=== PATIENT | male | born 1960 | race Caucasian/White ===

== ENCOUNTER → 2016-11-06 | Outpatient (CLI) | payer BC ==
[2016-11-06 13:26] LABS: BLOOD UREA NITROGEN 15 mg/dl (7-18); BUN/CREATININE RATIO 16.7 (10-20); CALCIUM 9.2 mg/dl (8.5-10.1); CARBON DIOXIDE 26 mmol/L (21-32); CHLORIDE 103 mmol/L (98-107); CHOLESTEROL 212 mg/dl (0-200); CREATININE 0.91 mg/dl (0.60-1.40); GLUCOSE 79 mg/dl (70-99); POTASSIUM 4.3 mmol/L (3.5-5.1); SODIUM 137 mmol/L (136-145); TRIGLYCERIDES 129 mg/dl (0-150); VERY LOW DENSITY LIPOPROT CALC 26 mg/dl
[2016-11-06 13:27] LABS: CHOLESTEROL/HDL RATIO 4.9; HDL CHOLESTEROL 43 mg/dl; LDL CHOLESTEROL CALCULATED 143 mg/dl
== END | disposition home or self-care (01) ==
LOC: C.LAB1850 10:09
PROVIDERS: ATTEND Family Medicine
DX: Z00.00 Encounter for general adult medical examination without abnormal findings (principal); N40.1 Benign prostatic hyperplasia with lower urinary tract symptoms

== ENCOUNTER → 2017-02-27 | Outpatient (CLI) | payer BC ==
[~2017-02-27] MED LIST: ASCO1CHW PO; ASTRAGALUS PO; KRIL1000 PO; [UNRECOGNIZED DRUG - OTHER] PO; [UNRECOGNIZED DRUG - OTHER] PO; [UNRECOGNIZED DRUG - OTHER] PO
[2017-02-27 12:32] LABS: CHOLESTEROL/HDL RATIO 4.3
== END | disposition home or self-care (01) ==
LOC: C.LAB1850 10:43
PROVIDERS: ATTEND Family Medicine
DX: E78.5 Hyperlipidemia, unspecified (principal)

== ENCOUNTER → 2017-05-11 | Outpatient (CLI) | payer BC | END | disposition home or self-care (01) | LOC: C.LAB1850 13:15 | PROVIDERS: ATTEND Urology | DX: R97.20 Elevated prostate specific antigen [PSA] (principal) ==

== ENCOUNTER → 2017-08-12 | Outpatient (CLI) | payer BC ==
--- NOTE | 2017-08-12 09:22 | DIAGNOSTIC IMAGING REPORT ---
CHEST 2 VIEWS ROUTINE CLINICAL HISTORY: CHEST PAIN dyspnea COMPARISON STUDY: No previous studies for comparison. FINDINGS: The bones soft tissues and hemidiaphragms are normal. The cardiomediastinal silhouette is normal. The lungs are clear. The pulmonary vasculature is normal. IMPRESSION: Negative chest. The above report was generated using voice recognition software. It may contain grammatical, syntax or spelling errors. Electronically signed by: Yomi Gallegos M.D. 08/12/2017 9:21 AM Dictated Date/Time: 08/12/2017 9:19 AM
== END | disposition home or self-care (01) ==
LOC: C.RAD1850 09:09
PROVIDERS: ATTEND Family Medicine
DX: R07.9 Chest pain, unspecified (principal); R06.00 Dyspnea, unspecified

== ENCOUNTER 2021-04-15 00:24 | Observation (INO) ==
--- NOTE | 2021-04-15 00:54 | Emergency Department Note ---
Impression & Plan Acute urinary retention ED Provider Note NAME: KRYSTA MARTINEZ AGE: 60 SEX: M ARRIVES VIA: Walk-In INFORMANT: Patient ED PROVIDER(S): Patsy Linares DO CHIEF COMPLAINT: Urinary retention PLAN: Disposition: To the OR with Dr. Akins MEDICAL DECISION MAKING: This is a 52-year-old male patient who presents to the emergency department unable to urinate. Patient has a history of an enlarged prostate. Patient drank 2 alcoholic beverages before bed tonight and is now unable to pass his urine. Patient tried to self cath and was unsuccessful. Patient describes similar episodes in the past which required self cathing. Unfortunately, he was unable to pass his own catheter. We attempted to straight cath the patient multiple times with different size catheters. We attempted IV sedation as well and then passing a catheter but were unsuccessful. I discussed the case with urology and they will evaluate the patient and take him to the OR. Triage Nursing notes reviewed and agree with them. Prior medical records reviewed Vital Signs: reviewed and remarkable for hypertension Differential diagnosis: Prostatic enlargement; urethral stricture ER treatment provided: IV Ativan IV Dilaudid Diagnostics interpreted by me: Consultation(s): Dr. Akins HPI: 60/M arrives for evaluation of urinary retention. The patient had 2 alcoholic beverages this evening around 9 PM and noticed that he was unable to pass his urine. The patient has history of prostatic hypertrophy with previous episodes of urinary retention. He attempted to self cath but could not pass the catheter. He attempted again but was again unsuccessful and noted there was blood coming from the penis. He presents here for evaluation. ROS: See above HPI for pertinent positives & negatives. PAST MEDICAL HISTORY:See Below PAST SURGICAL HISTORY:See Below FAMILY HISTORY:See Below SOCIAL HISTORY:See Below HOME MEDICATIONS:None ALLERGIES:None VITALS:See Below PHYSICAL EXAMINATION: Heart: Regular rate and rhythm. There is a normal S1 and S2 with no murmurs, clicks, or gallops appreciated. Lungs: Clear to auscultation bilaterally with no wheezes, rales, or rhonchi. Abdomen: Soft, extremely distended and tender Extremities: No evidence of cyanosis, clubbing, or edema. There are easily palpable peripheral pulses. Skin: warm and dry with good turgor and no rashes. ED COURSE: 0040: The patient was evaluated in room A3. A complete history and physical was performed. Nursing staff performed a bladder scan which showed nearly 600 mL of urine. They attempted to pass a straight cath to empty the patient's bladder but were unsuccessful. They attempted a coud catheter but were also unsuccessful. An IV lock was initiated and the patient was given a milligram of IV Ativan. Nursing staff again attempted straight cathing the patient but were unsuccessful. The patient was given 1 mg of IV Dilaudid for his pain. I discussed the case with Dr. Akins and he will take the patient to the OR for more definitive care. I discussed the case with Dr. Warren at the direction of Dr. Akins for admission orders. Patsy Linares DO Past Med/Surg History Medical History BPH (benign prostatic hyperplasia) Bronchitis Hypercholesterolemia Surgical History History of carpal tunnel repair Hx of LASIK S/P appendectomy S/P tooth extraction Family History Family/Other Colorectal cancer Father Heart disease BPH (benign prostatic hyperplasia) Nephrolithiasis Social History Smoking Status: Never smoker Hx Alcohol Use: Yes Preferred Language: Belarusian marital status: Single Current Living Situation: Significant Other current occupational status: employed Feels Safe at Home: Yes Allergies Allergies Allergy/AdvReac Type Severity Reaction Status Date / Time No Known Allergies Allergy Unverified 04/15/21 02:56 Home Meds Home Medications Medication Instructions Recorded Confirmed No Known Home Medications 04/15/21 04/15/21 Results & Data (ED) Vital Signs Vital Signs - 24 hr 04/15/21 00:32 04/15/21 02:33 04/15/21 03:53 Temperature 36.5 C Temperature Source Temporal Artery Scan Pulse Rate 105 H Pulse Rate [Apical] 89 93 H Respiratory Rate 24 24 18 Blood Pressure 198/103 H Blood Pressure [Right Arm] 189/100 H 172/97 H Blood Pressure Mean 134 Blood Pressure Mean [Right Arm] 129 122 Blood Pressure Position [Right Arm] Lying Pulse Oximetry 98 91 95 Oxygen Delivery Method Room Air Room Air Room Air Sepsis Recent Fever Within 48 Hours No Sepsis New/Unexplained Change in Mental Status No Sepsis Action Taken by Nursing No Action Required Laboratory Data Lab Results 04/15/21 Range/Units 03:14 COVID-19 Eval Order Covid19 at [facility] Administered Medications Discontinued Medications Hydromorphone HCl (Hydromorphone Inj 1 Mg/Ml Syringe) 1 mg IV NOW STA Stop: 04/15/21 02:42 Last Admin: 04/15/21 02:44 Dose: 1 mg Documented by: [id number] Hydromorphone HCl (Hydromorphone Inj 1 Mg/Ml Syringe) 1 mg IV NOW STA Stop: 04/15/21 03:42 Last Admin: 04/15/21 03:53 Dose: 1 mg Documented by: [id number] Lorazepam (Ativan) 1 mg in 2 mls @ 2 mls/min IV NOW STA Stop: 04/15/21 01:49 Last Admin: 04/15/21 02:11 Dose: 2 mls/min Documented by: [id number] Acetaminophen (Ofirmev) 1,000 mg in 100 mls @ 400 mls/hr IV NOW STA Stop: 04/15/21 03:55 Last Admin: 04/15/21 03:54 Dose: Not Given Documented by: [id number] Discharge Plan Visit Data Chief Complaint: Urinary Symptoms Stated Complaint: UNABLE TO URINATE,COULD NOT PUT CATHETER IN ED Provider: Patsy Linares Discharge Problem: Acute urinary retention Forms Stand Alone Forms: My [employer] Prescriptions Prescriptions: No Action No Known Home Medications RF: 0
[2021-04-15] MEDS ORDERED: LORazepam 1 MG/2 ML VIAL IV STA (01:48)
[2021-04-15] MEDS ORDERED: HYDROmorphone INJ 1 MG/ML SYRINGE IV STA ×3 (02:41→05:50)
--- NOTE | 2021-04-15 03:22 | History & Physical Report ---
Date of Service April 15, 2021 Assessment & Plan (1) Urinary retention: Enciso attempted in the ER was unsuccessful. Urology consulted and requested admission to medical service -Observation to medical -Urology consultation appreciated -Patient to OR later tonight to have catheter placement -Pain control and anti-emetics PRN Present on Admission?: Yes (2) Elevated blood pressure reading: In setting of acute urinary retention -Monitor F/E/N- Heplock. NPO Ppx - Low risk for DVT Code - Full Dispo - Observation to medical Present on Admission?: Yes History of Present Illness Chief Complaint: urinary retention Primary Care Provider: Ricardo Sarkar MD Willie Sánchez is a pleasant 60yo male presenting with acute urinary retention. Patient had 2 alcoholic beverages this evening and was finished by 21:00. Ar ound 22:30 he attempted to urinate but was unable to pass urine. He attempted to self catheterize but was unsuccessful. No additional complaints. Patient has had acute urinary retention on two prior occasions - both associated with a sleeping pill that he was previously on. He has materials at home to self catheterize if needed but has never needed to until tonight. ER Course: Urology consulted by ER staff. Requests that patient be admitted to medical service. Allergies Allergy/AdvReac Type Severity Reaction Status Date / Time No Known Allergies Allergy Unverified 04/15/21 02:56 Home Medications Medication Instructions Recorded Confirmed Type No Known Home Medications 04/15/21 04/15/21 History Past Med/Surg History Medical History BPH (benign prostatic hyperplasia) Bronchitis Hypercholesterolemia Surgical History History of carpal tunnel repair Hx of LASIK S/P appendectomy S/P tooth extraction Family History Family/Other Colorectal cancer Father Heart disease BPH (benign prostatic hyperplasia) Nephrolithiasis Social History Smoking Status: Never smoker Hx Alcohol Use: Yes Preferred Language: Tajik marital status: Single Current Living Situation: Significant Other current occupational status: employed Feels Safe at Home: Yes Review of Systems Review of Systems: All systems reviewed & are unremarkable except as noted in HPI & below +Abdominal pain and fullness Physical Exam Physical Exam: General: patient resting, uncomfortable, NAD, non-toxic in appearance, AA&O x 4 Skin: warm, dry, intact, no rashes or lesions HEENT: NC/AT, PERRL, EOMI, anicteric sclera, conjunctiva without injection, external ear normal to inspection and nontender, nares patent, moist mucus membranes, dentition intact, no oropharyngeal lesions, neck supple, trachea midline, no LAD, no thyromegaly, no JVD Heart: +S1/S2, regular, no m/r/g Lungs: equal air entry bilaterally, no rales/rhonchi/wheezes Abd: +BS, soft, firm, palpable bladder, no masses/organomegaly/ascites Ext: warm, 2+ pulses in UE/LE bilaterally, no clubbing/cyanosis or edema Neuro: nonfocal, patient AA&O x 4, speech intact, no facial droop, moving all extremities on command with equal strength 5/5 Results & Data Results & Data ([facility]) Vital Signs (Past 12 Hours) Vital Signs Temp Pulse Pulse Resp BP BP Pulse Ox 04/15/21 02:33 89 24 189/100 H 91 04/15/21 00:32 36.5 C 105 H 24 198/103 H 98 PG Care Time/CCT Total # of Minutes Spent Total Time Spent with Patient: Total time spent is greater than 50% in coordination of care (as documented) at patient's floor/unit and/or counseling patient: Coding Level of Care Code 74571 OBS Care - Level 2 Diagnoses Urinary retention R33.9 Elevated blood pressure reading R03.0
[2021-04-15] MEDS ORDERED: ACETAMINOPHEN 1,000 MG/100 ML VIAL IV STA (03:41)
[2021-04-15] MEDS ORDERED: fentaNYL citrate 100 MCG/2 ML VIAL ONE (03:56)
[2021-04-15] MEDS ORDERED: MIDAZOLAM HCL 1 MG/ML 2ML VIAL ONE (03:56)
[2021-04-15] MEDS ORDERED: fentaNYL citrate 100 MCG/2 ML VIAL IV PRN (04:12)
[2021-04-15] MEDS ORDERED: ePHEDrine sulfate 50 MG/ML AMP IV PRN (04:12)
[2021-04-15] MEDS ORDERED: ATROPINE SULFATE 0.1 MG/ML 10ML SYR IV PRN (04:12)
[2021-04-15] MEDS ORDERED: ONDANSETRON INJ 2 MG/ML 2 ML VIAL IV PRN ×2 (04:12→08:25)
--- NOTE | 2021-04-15 04:14 | Anesthesiology Consultation ---
Date of Service April 15, 2021 Assessment & Plan (1) Encounter for pre-operative examination: Chart Review Chart Review: Acceptable Risk for Surgery and Patient NOT seen in Pre Admission Testing Consults Requested none History Surgery Operation Date: 04/15/21 04:00 Proposed Procedures p Cystoscopy - John Akins DO s Ureteral Stent Insertion/Removal - John Akins DO Height/Weight Height: 5 ft 9 in Weight: 77.5 kg Allergies Allergy/AdvReac Type Severity Reaction Status Date / Time No Known Allergies Allergy Unverified 04/15/21 02:56 Medications Home Medications Medication Instructions Recorded Confirmed Last Taken No Known Home Medications 04/15/21 04/15/21 Unknown NPO Date Last Intake of Fluids: 04/14/21 Time Last Intake of Fluids: 21:00 Date Last Intake of Solids: 04/14/21 Time Last Intake of Solids: 20:30 Past Medical History Medical History BPH (benign prostatic hyperplasia) Bronchitis Hypercholesterolemia Exercise / Class Metabolic Activity II 4-5 Yardwork/Stairs/Walk up hill Past Family History Family History Family/Other Colorectal cancer Father Heart disease BPH (benign prostatic hyperplasia) Nephrolithiasis Past Surgical History Surgical History History of carpal tunnel repair Hx of LASIK S/P appendectomy S/P tooth extraction Past Anesthesia History No Hx of Anesthesia Complications and No Family Hx of Anesthesia Complications History of PONV No Hx of PONV and No Hx of Motion Sickness Social History Smoking Status: Never smoker Do You Dip or Chew Tobacco: No Hx Alcohol Use: Yes Hx Substance Use: No Physical Exam Vital Signs Last Vital Signs Temp 36.5 C 04/15/21 00:32 Pulse 93 H 04/15/21 03:53 Resp 18 04/15/21 03:53 BP 172/97 H 04/15/21 03:53 Pulse Ox 95 04/15/21 03:53
--- NOTE | 2021-04-15 04:30 | Urology Consultation ---
Date of Consultation April 15, 2021 Assessment & Plan (1) Acute urinary retention: Patient developed acute urinary retention after a few months of dealing with increasing urinary issues. Last few weeks has been particularly difficult. Patient had not voided since approximately 8 PM tonight. Patient is dealing with worsening distention and discomfort. Has become more severe. Is a longtime patient of Dr. Drew and has had dealt with chronic retention issues in the past. Patient had previously straight cath himself. Patient CT scan was reviewed interpreted by myself. Likely retention. Multiple attempts by nursing in the ER to place catheter. Risks and benefits discussed at length for procedure. These include bleeding, infection, injury to surrounding tissues or organs, and risks associated with anesthesia. Patient states understanding and agrees to proceed. Will sign consent and proceed Plan for cystoscopy and possible dilation. Patient's preliminary Covid test had come back positive. With confirmatory test ordered and came back negative. Patient had COVID in the winter and likely false positive. Urgent/Emergent procedure for anuria. (2) Elevated prostate specific antigen (PSA): (3) Chronic prostatitis: History of Present Illness History of Present Illness Consult for urinary issues with incomplete emptying and possible retention. Well-known patient of Dr. Drew. Has previously had considerable emptying issues. Had straight catheters if needed and was having increasing issues over the last few months. Had plan to see Dr. Drew later in the month. Worsened over today. Initially patient has mild to moderate discomfort in pelvis and groin going to back and side in waves. This became more severe and more bothersome and patient has not had a significant void since approximately 8 PM. Is dealing with acute illness due to retention and Has been deconditioned from this. Has decreased mobility significantly with acute issues. Multiple attempts at catheter placement in the ER. This is failed and since patient arrival has not had a void. Underwent CT scan which was reviewed and summarized by myself. Patient appears to be in retention with greater than 600 cc in the bladder. Denies bleeding. No severe nausea or vomiting. Currently no fevers. Discussed with patient multifactorial nature of urinary issues, retention, and incomplete bladder emptying. Discussed patient's chronic issues with possibility of development of strictures or contractures. Discussed concerns and issues. Discussed decreased mobility and trouble voiding. Discussed issues related to deconditioning and weakened state. Discussed possibility that patient had more moderate to severe issues and with the acute illness and deconditioning these issues became more prevalent and obvious. Discussed bowel function and possible issues related to decrease in function and its relation to other pelvic organs and systems. Discussed different medications, will use during hospitalization and their effect on ability to empty. Allergies Allergy/AdvReac Type Severity Reaction Status Date / Time No Known Allergies Allergy Unverified 04/15/21 02:56 Home Medications Medication Instructions Recorded Confirmed Type No Known Home Medications 04/15/21 04/15/21 History Patient History Medical History BPH (benign prostatic hyperplasia) Bronchitis Hypercholesterolemia Surgical History History of carpal tunnel repair Hx of LASIK S/P appendectomy S/P tooth extraction Family History Family/Other Colorectal cancer Father Heart disease BPH (benign prostatic hyperplasia) Nephrolithiasis Social History Smoking Status: Never smoker Do You Dip or Chew Tobacco: No; Hx Alcohol Use: Yes Hx Substance Use: No Preferred Language: Haitian marital status: Single Current Living Situation: Significant Other current occupational status: employed Feels Safe at Home: Yes Review of Systems Review of Systems: All systems reviewed & are unremarkable except as noted in HPI & below Physical Exam Physical Exam: General: Alert and oriented x 3 in no acute distress. Patient is well nourished and well kept. HEENT: Normocephalic Atraumatic. Inspection normal. Cranial Nerves 2-12 Grossly intact. Nares are clear. Neck is supple. Normal inspection of face. Normal inspection of neck. Neurologic: No deficits on inspection. Baseline for motor function and sensory. Psychologic: Normal affect. Respiratory: Nonlabored. No use of accessory muscles. No tachypnea or dyspnea. Cardiovascular: No tachycardia Skin: Parkman and Dry. No rashes or visible lesions. Extremities: No new motor deficits on inspection Lymphatics: No edema Abdomen: Moderately distended. No acites. No rebound or guarding. Results & Data ([facility]) Vital Signs (Past 12 Hours) Vital Signs Temp Pulse Pulse Resp BP BP Pulse Ox 04/15/21 03:53 93 H 18 172/97 H 95 04/15/21 02:33 89 24 189/100 H 91 04/15/21 00:32 36.5 C 105 H 24 198/103 H 98 PG Care Time/CCT Total # of Minutes Spent Total Time Spent with Patient: Total time spent is greater than 50% in coordination of care (as documented) at patient's floor/unit and/or counseling patient: Coding Level of Care Code 59967 Inpt Consult Level 5 Diagnoses Acute urinary retention R33.8 Elevated prostate specific antigen (PSA) R97.20 Chronic prostatitis N41.1
[2021-04-15] MEDS ORDERED: ONDANSETRON INJ 2 MG/ML 2 ML VIAL ONE (06:09)
[2021-04-15] MEDS ORDERED: PROPOFOL IV EMULSION 10 MG/ML 20 ML VIAL IV ONE (06:09)
--- NOTE | 2021-04-15 06:52 | Operative Report ---
PG Post Operative Report Pre & Post Diagnosis Operation Date: 04/15/21 04:00 Pre-Op Diagnosis: Urinary Retention Post-Op Diagnosis: Urinary Retention I identified the patient and participated in the time-out.: Yes Procedure Operation Date: 04/15/21 04:00 Actual Procedures p Cystoscopy with Urethral Dilation and Clot Evacuation (Not Applicable) - Con Akins DO Surgeon John Akins, II, DO Aviation Medicine Specialist None Estimated Blood Loss 1 Findings Consistent with Post-Op Diagnosis Mild urethral stricture and false passage at bulbar urethra. Severely enlarged prostate with large varicosity and some area of bleeding varicosity. Significantly inflammed. Large amount of clot in bladder. Multiple areas of irritation and minor bleeding throughout bladder. Specimens None Drains [address] to CBI Anesthesia Type MAC Complications none Disposition Disposition: Recovery Room Indications Patient with severe urinary retention with concern for urethral stricture. Emergent procedure for anuria. Risks and benefits discussed at length. Description of Procedure Patient was consented and brought back to the operating room. Patient was placed under anesthesia in the supine position and moved to the dorsal lithotomy position. Patient was prepped and draped in the regular sterile fashion. A time out was completed. A 30 degree Cystoscope was placed into the urethra. The scope was advanced and a minor false passage with mild narrowing/stricture was discovered in the bulbar urethra. A flexible wire was able to be manipulated into the opening. This was dilated. This opened the stricture significantly. The area was inspected. The scope was then advanced past the stricture. The prostate was severely inflamed with multiple large varicosity and extreme enlargement. Mild bleeding from varicosity at bladder neck. Large clot in bladder was evacuated. The scope was then advanced to the bladder and the entire bladder was examined. The posterior wall was found to be severely inflamed and irritated with ulceration/fissure throughout the visible portion. Visualization was severely limited due to the multiple small areas of bleeding. The dome, UO's, and trigone were difficult to visualize due to the severe irritation likely from overdistension. No significant lesions/suspicious areas were identified. Due to the bleeding throughout it was decided to leave a 3 way catheter and CBI. The bladder was inspected a final time. The scope was removed. No considerable bleeding from the dilated area. The wire remained in placed. A 3 Way 22 Fr catheter was placed over the wire and positioned into the bladder and set to drainage. Irrigation was attached. The patient was cleaned, aroused from anesthesia, and transferred to the pacu in stable condition having tolerated the procedure well with no complications. I was present and participated in all aspects of the procedure. The patient will be monitored in the PACU until transferred. Catheter will remain until followup for removal. Will plan on CBI overnight and monitoring due to severe acute distention. Karen hartman's major issue appears to be significant enlargement and obstruction of the prostate. I attest to the content of the Intraoperative Record and any orders documented therein. Any exceptions are noted below.
--- NOTE | 2021-04-15 07:00 | Anesthesiology Progress Note ---
Date of Service April 15, 2021 Anesthesia Post Procedure Vital Signs Vital Signs: Temp Pulse Pulse Resp BP BP Pulse Ox 04/15/21 05:17 91 H 20 182/106 H 94 04/15/21 03:53 93 H 18 172/97 H 95 04/15/21 02:33 89 24 189/100 H 91 04/15/21 00:32 36.5 C 105 H 24 198/103 H 98 Transfer of Care Handoff Completed per policy Notes Mental Status: alert / awake / arousable and participated in evaluation Patient Amnestic to Procedure: Yes Nausea / Vomiting: adequately controlled Pain: adequately controlled Airway Patency, RR, SpO2: stable & adequate BP & HR: stable & adequate Hydration State: stable & adequate Anesthetic Complications: no major complications apparent and Pt Satisfied with anesthetic care
--- NOTE | 2021-04-15 19:02 | Hospitalist Progress Note ---
Date of Service April 15, 2021 Assessment & Plan (1) Urinary retention: Merritt attempted in the ER was unsuccessful. Urology consulted and took to OR 04/15/21 Cystoscopy, Urethral Dilation of stricture, Clot Evacuation Surgeon: John Akins -Observation to medical -Urology consultation will follow [address] -Pain control and anti-emetics PRN urine culture not sent initially psa 19 (2) Elevated blood pressure reading: persists, maybe to stressors of hospital stay F/E/N- Heplock. NPO Ppx - Low risk for DVT Code - Full Dispo - Observation to medical Admission and Anticipated Discharge Date Admission Date: April 15, 2021 Subjective Patient is resting without complaints he has multiple questions and concerns regarding his prostate and urinary health. Has been through many different things in the past including medications referral to [facility], MRI of his prostate [id number] and herbal remedies all with minimal to modest success Review of Systems Review of Systems: little distress or fatigue no headache, no visual changes no speech or swallowing issues no chest pain, pressure or palpitations no shortness of breath, cough or wheezes no abdominal pain, nausea or vomiting, diarrhea or constipation [address] irrigating no focal joint pain or swelling no back pain, CVA tenderness or radicular pain no bruising, bleeding or rashes no focal signs of weakness or numbness or altered sensation no complaints of anxiety or depression.. Physical Exam Physical Exam: The patient appeared well nourished and normally developed. Vital signs as documented. Head exam is normocephalic atraumatic Neck is without JVD, thyromegaly, or carotid bruits. Lungs are clear to auscultation, no focal loss of breath sounds Cardiac exam, Rhythm is regular.. No murmurs, rubs or gallops. Abdominal exam reveals normal bowel sounds, soft non tender, no masses Extremities are nonedematous and both pedal pulses are present Neurologic exam is alert and oriented, no focal loss of strength or sensation Skin is without bruises or rashes Psychologically is without concerns for anxiety or depression Results & Data Results & Data ([facility]) Vital Signs (Past 12 Hours) Vital Signs Temp Pulse Resp BP BP Pulse Ox 04/15/21 15:47 98.6 F 73 16 174/89 H 97 04/15/21 13:00 98.1 F 90 15 160/79 H 95 07/12/21 08:50 97.7 F 81 15 171/91 H 96 04/15/21 07:45 74 12 130/82 90 04/15/21 07:30 98.1 F 76 18 156/76 H 91 04/15/21 07:20 88 19 156/91 H 94 04/15/21 07:15 75 11 L 137/80 92 04/15/21 07:10 77 11 L 125/87 93 04/15/21 07:05 79 12 138/91 94 04/15/21 07:00 84 15 146/101 H 98 PG Care Time/CCT Total # of Minutes Spent Total Time Spent with Patient: Total time spent is greater than 50% in coordination of care (as documented) at patient's floor/unit and/or counseling patient: Coding Level of Care Code None Diagnoses Urinary retention R33.9 Elevated blood pressure reading R03.0
--- NOTE | 2021-04-16 10:19 | Urology Progress Note ---
Date of Service April 16, 2021 Assessment & Plan (1) Acute urinary retention: (2) BPH (benign prostatic hyperplasia): 60yo M admitted with acute urinary retention - Postop day #1 status post Cystoscopy with Urethral Dilation and Clot Evacuation with Dr. Akins. - Patient is doing well following his procedure, no complaints of pain. - Remains afebrile. - Labs reviewed - PSA is 19. Will check a CBC and BMP this AM. - Merritt catheter intact/patent, draining pink-tinged urine. - CBI clamped at 0930 this morning - Will continue to monitor. - Discussed need for further outpatient work-up. Discussed etiologies of acute urinary retention. Discussed possible pharmaceutical and surgical options for further management of urinary issues. - Patient prefers to keep his outpatient follow-up with Dr. Drew scheduled for tomorrow (04/17) at 9am to further discuss his treatment plan regarding his urinary issues and PSA. - Maintain merritt catheter. - Encourage ambulation. - Continue supportive care. - Will continue to follow. - Pt reassessed this afternoon. - Doing well, eager to go home today. - Labs reviewed, Wbc and creatinine normal. - Urine culture pending. - Merritt catheter intact/patent, draining clear, yellow urine. - Patient is stable for discharge from perspective - Home with merritt catheter. - Recommend keeping outpatient f/u appointment as scheduled tomorrow 04/17/[address] Drew. - Patient agreeable to plan, all questions were answered. Thank you for allowing us to participate in the acute care of Mr. Sánchez. Please reconsult us with additional questions, concerns or changes in patient status. Admission and Anticipated Discharge Date Admission Date: April 15, 2021 Subjective Pt examined at bedside this AM. Awake, resting comfortably in bed on arrival. Denies any pain or discomfort at present. Tolerating the catheter with minimal bother. Merritt intact/patent, draining pink-tinged urine with CBI running slowly. Denies fevers or chills. No nausea or vomiting. No dysuria. Eager to go home today. Review of Systems Constitutional: as per Subjective / HPI Gastrointestinal: as per Subjective / HPI Genitourinary: + as per Subjective / HPI Physical Exam Constitutional: well developed and well nourished; no acute distress and not ill appearing Respiratory: no labored breathing and no audible wheezes Gastrointestinal (Abdomen): Percussion/Palpation: abdomen soft; abdomen nonten carla and no guarding Skin: no rashes, warm and dry Neurologic: awake Psychiatric: A+Ox3, euthymic affect Genitourinary: Merritt catheter intact Results & Data ([facility]) Vital Signs (Past 12 Hours) Vital Signs Temp Pulse Resp BP Pulse Ox 04/16/21 04:14 36.9 C 70 18 175/89 H 96 04/15/21 23:06 37.1 C 80 18 166/88 H 95 PG Care Time/CCT Total # of Minutes Spent Total Time Spent with Patient: Total time spent is greater than 50% in coordination of care (as documented) at patient's floor/unit and/or counseling patient: Coding Level of Care Code 63862 Subseq Hosp Care Lvl 2 Diagnoses Acute urinary retention R33.8 BPH (benign prostatic hyperplasia) N40.0
[2021-04-16 10:44] LABS: Basophils # (auto) 0.04 K/uL (0-0.2); Basophils % (auto) 0.4 %; Eosinophils # (auto) 0.07 K/uL (0-0.5); Eosinophils % (auto) 0.8 %; Hematocrit (blood only) 46.6 % (42-52); Hemoglobin 16.1 g/dL (14.0-18.0); Immature Granulocytes # (auto) 0.02 K/uL (0.00-0.02); Immature Granulocytes % (auto) 0.2 %; Lymphocytes # (auto) 2.14 K/uL (1.2-3.4); Lymphocytes % (auto) 23.5 %; Mean Corpuscular Hemoglobin 29.9 pg (25-34); Mean Corpuscular Hgb Conc 34.5 g/dL (32-36); Mean Corpuscular Volume 86.6 fL (80-100); Mean Platelet Volume 9.4 fL (7.4-10.4); Monocytes # (auto) 0.77 K/uL (0.11-0.59); Monocytes % (auto) 8.5 %; Neutrophils # (auto) 6.05 K/uL (1.4-6.5); Neutrophils % (auto) 66.6 %; Platelet Count 245 K/uL (130-400); RDW Standard Deviation 41.1 fL (36.4-46.3); Red Blood Count 5.38 M/uL (4.7-6.1); White Blood Count 9.09 K/uL (4.8-10.8)
[2021-04-16 11:02] LABS: BUN Creatinine Ratio 15.6 (10-20); Calcium 9.4 mg/dl (8.5-10.1); Creatinine Clr Calc Pharmacy 88.5 ml/min; Est GFR (African American) 107.3 ml/min; Est GFR (Non-African American) 92.6 ml/min; Potassium 3.9 mmol/L (3.5-5.1)
--- NOTE | 2021-04-16 20:23 | Discharge Summary ---
Date of Service April 16, 2021 Admission HPI Per Admitting Provider Willie Sánchez is a pleasant 60yo male presenting with acute urinary retention. Patient had 2 alcoholic beverages this evening and was finished by 21:00. Around 22:30 he attempted to urinate but was unable to pass urine. He attempted to self catheterize but was unsuccessful. No additional complaints. Patient has had acute urinary retention on two prior occasions - both associated with a sleeping pill that he was previously on. He has materials at home to self catheterize if needed but has never needed to until tonight. ER Course: Urology consulted by ER staff. Requests that patient be admitted to medical service. Principal Diagnosis Urinary outlet obstruction Elevated PSA Discharge Exam Patient appears in no distress. He is educated on leg bag use. He has no significant back pain. Discharge Data Allergies Allergy/AdvReac Type Severity Reaction Status Date / Time No Known Allergies Allergy Unverified 04/15/21 02:56 Consultations 04/15/21 04:04 ED Decision to Admit Stat 04/15/21 08:25 Consult Urology Routine Procedures Performed Operation Date: 04/15/21 04:00 Actual Procedures p Cystoscopy, Urethral Dilation, Clot Evacuation (Not Applicable) - John Akins, DO Hospital Course (1) Urinary retention: Merritt attempted in the ER was unsuccessful. Urology consulted and took to OR 04/15/21 Cystoscopy, Urethral Dilation of stricture, Clot Evacuation Surgeon: John Akins -Patient is resistant on recommendations for Flomax or Proscar -Urology consultation recommends home with leg bag following up with Dr. Drew on 04/17/21, micro urine specimen pending at time of discharge psa 19 (2) Elevated blood pressure reading: persists, maybe to stressors of hospital stay Code - Full Total Time Total Time Spent Total Time Spent (In Minutes): It required greater than 30 minutes to prepare this patient for discharge Discharge Plan Discharge Items Patient Disposition: Home - Self-Care Reason For Visit: URINARY RETENTION Discharge Diagnosis: urinary retention with merritt catheter and leg bag at discharge Activity: Resume your previous activity Non-emergency contact: Primary Care Provider and Urologist Call non-emergency contact if: you have any medication questions and your symptoms worsen Follow-up/Referrals: Pipe Drew MD [Physician] - 04/17/21 9:00 am Ricardo Sarkar MD [Primary Care Provider] - 04/25/21 1:30 pm Diet: Regular Addtl Attending Provider Instructions: please follow up with Dr Drew one day after discharge to discuss your catheter, treatment of your enlarged prostate and your elevated PSA Pending Studies at Discharge: Yes Studies:: urine culture Stand-Alone Forms: [employer], Smoking Cessation Medications and DC Order Prescriptions: No Action No Known Home Medications RF: 0 Discharge Orders: Discharge Order (Routine); Ordered 04/16/21 Ordered By: Ryan Davies/Other Patient Handouts: ED Merritt Catheter, Care Admission Data Admit Date/Time: 04/15/21 03:22 Attending Provider: Ryan Carlos Admit Provider: Valerie Warren Primary Care Provider: Ricardo Sarkar Other Providers: Valerie Warren ; John Akins. Other Interventions: Discharge Summary Assessment (RN) Last Done: 04/16/21 13:35 Coding Level of Care Code D/C DAY MANAGEMENT <30 MINS Diagnoses Urinary retention R33.9 Elevated blood pressure reading R03.0
== END 2021-04-16 15:23 | disposition home or self-care (01) ==
LOC: ED 00:24 → SUATTDRO 03:22 → OR 05:56 → 3N 05:56

== ENCOUNTER 2021-04-22 18:47 | Inpatient (IN) ==
[2021-04-22 20:06] LABS: Basophils # (auto) 0.06 K/uL (0-0.2); Basophils % (auto) 0.5 %; Eosinophils # (auto) 0.02 K/uL (0-0.5); Eosinophils % (auto) 0.2 %; Hemoglobin 15.8 g/dL (14.0-18.0); Immature Granulocytes # (auto) 0.04 K/uL (0.00-0.02); Immature Granulocytes % (auto) 0.3 %; Lymphocytes # (auto) 1.19 K/uL (1.2-3.4); Lymphocytes % (auto) 10.2 %; Mean Corpuscular Hemoglobin 30.3 pg (25-34); Mean Corpuscular Hgb Conc 35.1 g/dL (32-36); Mean Corpuscular Volume 86.4 fL (80-100); Mean Platelet Volume 9.1 fL (7.4-10.4); Monocytes # (auto) 1.06 K/uL (0.11-0.59); Monocytes % (auto) 9.1 %; Neutrophils # (auto) 9.32 K/uL (1.4-6.5); Neutrophils % (auto) 79.7 %; Platelet Count 284 K/uL (130-400); RDW Coefficient of Variation 12.5 % (11.5-14.5); RDW Standard Deviation 39.9 fL (36.4-46.3); Red Blood Count 5.21 M/uL (4.7-6.1); White Blood Count 11.69 K/uL (4.8-10.8)
[2021-04-22 20:22] LABS: Alanine Aminotransferase 31 U/L (12-78); Albumin Level 3.7 gm/dl (3.4-5.0); Aspartate Aminotransferase 13 U/L (15-37); BUN Creatinine Ratio 14.2 (10-20); Blood Urea Nitrogen 16 mg/dl (7-18); Calcium 9.3 mg/dl (8.5-10.1); Carbon Dioxide 25 mmol/L (21-32); Chloride 103 mmol/L (98-107); Creatinine Clr Calc Pharmacy 74.9 ml/min; Est GFR (African American) 84.4 ml/min; Est GFR (Non-African American) 72.8 ml/min; Glucose 97 mg/dl (70-99); Sodium 135 mmol/L (136-145)
[2021-04-22 20:25] LABS: Albumin Globulin Ratio 0.9 (0.9-2); Alkaline Phosphatase 126 U/L (45-117); Bilirubin,Total 0.8 mg/dl (0.2-1); Globulin 4.1 gm/dl (2.5-4.0); Total Protein 7.8 gm/dl (6.4-8.2)
[2021-04-22] MEDS ORDERED: SODIUM CHLORIDE 0.9% 1000ML 1,000 ML IV SCH ×2 (20:45→21:45)
[2021-04-22 20:57] LABS: Magnesium 1.8 mg/dl (1.8-2.4)
[2021-04-22] MEDS ORDERED: DAPTOmycin 450 MG in SYRINGE 0 ML IV ONE (21:08)
[2021-04-22 21:09] LABS: Troponin I < 0.015 ng/ml (0-0.045)
--- NOTE | 2021-04-22 21:14 | Emergency Department Note ---
Impression & Plan Sepsis, Acute UTI ED Provider Note NAME: KRYSTA MARTINEZ AGE: 60 SEX: M : 1960 ARRIVES VIA: Walk-In INFORMANT: Patient ED PROVIDER(S): Nestor Lewis DO CHIEF COMPLAINT: fever HPI: Patient is a 60-year-old male who presents to the ER for fever. Patient has had a protracted course of urinary retention. He had a Enciso placed within the past week. This was placed surgically. It became clogged and consequently came back in on and had it flushed/changed by urology. Fever started today. He has been on antibiotics as an outpatient and was just switched to doxycycline today. He denies any headache or change in vision. No chest pain or shortness of breath. No nausea vomiting or diarrhea. He notes he has more green drainage around the tip of his penis. ROS: See above HPI for pertinent positives & negatives. A total of 10 systems reviewed and were otherwise negative. PAST MEDICAL HISTORY:See Below PAST SURGICAL HISTORY:See Below FAMILY HISTORY:See Below SOCIAL HISTORY:See Below HOME MEDICATIONS:See Below ALLERGIES:See Below VITALS:See Below PHYSICAL EXAMINATION: GENERAL: Sitting up in bed, alert, well appearing, well nourished, no distress, non-toxic EYE EXAM: normal conjunctiva. PERRL and EOM's grossly intact. OROPHARYNX: no exudate, no erythema, lips, buccal mucosa, and tongue normal and mucous membranes are moist NECK: supple, no nuchal rigidity, no adenopathy, non-tender LUNGS: Clear to auscultation. Normal chest wall mechanics HEART: tachy, S1 normal and S2 normal ABDOMEN: abdomen soft, non-tender, normo-active bowel sounds, no masses, no rebound or guarding. : Normal external genitalia with a Enciso in place and small amount of green discharge UPPER EXTREMITIES: upper extremities are grossly normal. LOWER EXTREMITIES: No pitting edema. NEURO EXAM: Normal sensorium, cranial nerves II-XII grossly intact, normal speech, no gross weakness of arms, no gross weakness of legs. MEDICAL DECISION MAKING: Patient is a 61-year-old male who presents the ER for fever. Upon presentation he was found to be febrile, and tachycardic. IV established blood work was obtained. Labs show a leukocytosis of 12,000. No significant anemia. BMP was unremarkable. LFTs bilirubin was negative. Troponin was negative. UA does suggest a UTI with his Enciso in place. Previous cultures were reviewed and he was placed on meropenem. He also had a green discharge from tip of catheter and meropenem would cover Pseudomonas. Patient was updated bedside. Discussed with hospitalist and given 2 L of IV fluids and admitted for further work-up. Heart rate trended down. Triage Nursing notes reviewed. Limited review of prior medical records performed Vital Signs: reviewed and remarkable for HTN and tachy Differential diagnosis: Differential diagnosis includes etiologies such as sepsis, UTI, pneumonia, metabolic, electrolyte abnormalities, cardiac sources, intracerebral event, toxicologic, neurological, as well as others were entertained. ER treatment provided: See below Diagnostics interpreted by me: ECG: none Cardiac Monitoring: An order was placed for continuous cardiac monitoring. The monitor shows a rate of 130 with sinus rhythm. Laboratory studies: As stated above and show below. Imaging studies: Portable AP upright 1 view of the chest shows no focal infiltrate or pneumo thorax Consultation(s): Discussed with Magnus Medina for further evaluation Procedures: none Critical Care: None Past Med/Surg History Medical History BPH (benign prostatic hyperplasia) Bronchitis Hypercholesterolemia Surgical History History of carpal tunnel repair Hx of LASIK S/P appendectomy S/P tooth extraction Family History Family/Other Colorectal cancer Father Heart disease BPH (benign prostatic hyperplasia) Nephrolithiasis Social History Smoking Status: Never smoker Hx Alcohol Use: Yes Alcohol type: beer Hx Substance Use: No Preferred Language: Spanish marital status: Single Current Living Situation: Significant Other current occupational status: employed Feels Safe at Home: Yes Allergies Allergies Allergy/AdvReac Type Severity Reaction Status Date / Time No Known Allergies Allergy Verified 04/22/21 21:22 Home Meds Home Medications Medication Instructions Recorded Confirmed vibegron 75 mg tablet (Gemtesa) 75 mg PO DAILY 04/22/21 04/22/21 Previous Rx's Medication Instructions Recorded doxycycline hyclate 100 mg tablet 100 mg PO BID 7 Days #14 tab 07/19/21 Results & Data (ED) Vital Signs Vital Signs - 24 hr 04/22/21 18:55 04/22/21 22:39 04/22/21 23:12 Temperature 37.7 C H 38.5 C H Temperature Source Temporal Artery Scan Oral Pulse Rate 123 H Pulse Rate [Left Radial] 99 H 93 H Pulse Rhythm [Left Radial] Regular Pulse Strength [Left Radial] Normal Respiratory Rate 16 18 Respiratory Effort / Characteristics Non-Labored Respiratory Depth Normal Respiratory Pattern Regular Blood Pressure 145/82 H Blood Pressure [Right Arm] 139/75 122/76 Blood Pressure Mean 103 Blood Pressure Mean [Right Arm] 96 91 Blood Pressure Position Sitting Blood Pressure Position [Right Arm] Lying Lying Pulse Oximetry 97 96 Oxygen Delivery Method Room Air Room Air Sepsis Recent Fever Within 48 Hours No Sepsis New/Unexplained Change in Mental Status No Sepsis Action Taken by Nursing No Action Required Laboratory Data Result diagrams: 04/22/21 19:49 04/22/21 19:49 Lab Results 04/22/21 04/22/21 04/22/21 Range/Units 19:49 19:49 20:50 WBC 11.69 H (4.8-10.8) K/uL RBC 5.21 (4.7-6.1) M/uL Hgb 15.8 (14.0-18.0) g/dL Hct 45.0 (42-52) % MCV 86.4 (80-100) fL MCH 30.3 (25-34) pg MCHC 35.1 (32-36) g/dL RDW Std Deviation 39.9 (36.4-46.3) fL RDW Coeff of [place] 12.5 (11.5-14.5) % Plt Count 284 (130-400) K/uL MPV 9.1 (7.4-10.4) fL Immature Gran % (Auto) 0.3 % Neut % (Auto) 79.7 % Lymph % (Auto) 10.2 % [place] % (Auto) 9.1 % Eos % (Auto) 0.2 % Baso % (Auto) 0.5 % Neut # (Auto) 9.32 H (1.4-6.5) K/uL Lymph # (Auto) 1.19 L (1.2-3.4) K/uL [place] # (Auto) 1.06 H (0.11-0.59) K/uL Eos # (Auto) 0.02 (0-0.5) K/uL Baso # (Auto) 0.06 (0-0.2) K/uL Immature Gran # (Auto) 0.04 H (0.00-0.02) K/uL PT 10.8 (9.0-12.0) Seconds INR 1.1 (0.9-1.1) APTT 31.3 H (21.0-31.0) Seconds PTT Ratio 1.2 Sodium 135 L (136-145) mmol/L Potassium 4.0 (3.5-5.1) mmol/L Chloride 103 (98-107) mmol/L Carbon Dioxide 25 (21-32) mmol/L Anion Gap 8.0 (3-11) BUN 16 (7-18) mg/dl Creatinine 1.11 (0.6-1.4) mg/dl Est Cr Clr Drug Dosing 74.9 ml/min Est GFR ( Amer) 84.4 ml/min Est GFR (Non-Af Amer) 72.8 ml/min BUN/Creatinine Ratio 14.2 (10-20) Glucose 97 (70-99) mg/dl Lactate (0.4-2.0) mmol/L Calcium 9.3 (8.5-10.1) mg/dl Magnesium 1.8 (1.8-2.4) mg/dl Total Bilirubin 0.8 (0.2-1) mg/dl AST 13 L (15-37) U/L ALT 31 (12-78) U/L Alkaline Phosphatase 126 H (45-117) U/L Troponin I < 0.015 (0-0.045) ng/ml Total Protein 7.8 (6.4-8.2) gm/dl Albumin 3.7 (3.4-5.0) gm/dl Globulin 4.1 H (2.5-4.0) gm/dl Albumin/Globulin Ratio 0.9 (0.9-2) Procalcitonin (0-0.5) ng/ml Urine Color Urine Appearance (Clear) Urine pH (4.5-7.5) Ur Specific [place] (1.000-1.030) Urine Protein (Negative) Urine Glucose (UA) (Negative) Urine Ketones (Negative) Urine Blood (Negative) Urine Nitrite (Negative) Urine Bilirubin (Negative) Urine Urobilinogen (Negative) Ur Leukocyte Esterase (Negative) Urine WBC (Auto) (0-5) /hpf Urine RBC (Auto) (0-4) /hpf U Hyaline Cast (Auto) (0-5) /lpf U Epithel Cells (Auto) (0-5) /lpf Urine Bacteria (Auto) (Negative) COVID-19 Eval Order SARS-CoV-2 (PCR) (Negative) 04/22/21 04/22/21 04/22/21 Range/Units 20:50 20:50 21:24 WBC (4.8-10.8) K/uL RBC (4.7-6.1) M/uL Hgb (14.0-18.0) g/dL Hct (42-52) % MCV (80-100) fL MCH (25-34) pg MCHC (32-36) g/dL RDW Std Deviation (36.4-46.3) fL RDW Coeff of [place] (11.5-14.5) % Plt Count (130-400) K/uL MPV (7.4-10.4) fL Immature Gran % (Auto) % Neut % (Auto) % Lymph % (Auto) % [place] % (Auto) % Eos % (Auto) % Baso % (Auto) % Neut # (Auto) (1.4-6.5) K/uL Lymph # (Auto) (1.2-3.4) K/uL [place] # (Auto) (0.11-0.59) K/uL Eos # (Auto) (0-0.5) K/uL Baso # (Auto) (0-0.2) K/uL Immature Gran # (Auto) (0.00-0.02) K/uL PT (9.0-12.0) Seconds INR (0.9-1.1) APTT (21.0-31.0) Seconds PTT Ratio Sodium (136-145) mmol/L Potassium (3.5-5.1) mmol/L Chloride (98-107) mmol/L Carbon Dioxide (21-32) mmol/L Anion Gap (3-11) BUN (7-18) mg/dl Creatinine (0.6-1.4) mg/dl Est Cr Clr Drug Dosing ml/min Est GFR ( Amer) ml/min Est GFR (Non-Af Amer) ml/min BUN/Creatinine Ratio (10-20) Glucose (70-99) mg/dl Lactate 1.2 (0.4-2.0) mmol/L Calcium (8.5-10.1) mg/dl Magnesium (1.8-2.4) mg/dl Total Bilirubin (0.2-1) mg/dl AST (15-37) U/L ALT (12-78) U/L Alkaline Phosphatase (45-117) U/L Troponin I (0-0.045) ng/ml Total Protein (6.4-8.2) gm/dl Albumin (3.4-5.0) gm/dl Globulin (2.5-4.0) gm/dl Albumin/Globulin Ratio (0.9-2) Procalcitonin 0.05 (0-0.5) ng/ml Urine Color Urine Appearance (Clear) Urine pH (4.5-7.5) Ur Specific [place] (1.000-1.030) Urine Protein (Negative) Urine Glucose (UA) (Negative) Urine Ketones (Negative) Urine Blood (Negative) Urine Nitrite (Negative) Urine Bilirubin (Negative) Urine Urobilinogen (Negative) Ur Leukocyte Esterase (Negative) Urine WBC (Auto) (0-5) /hpf Urine RBC (Auto) (0-4) /hpf U Hyaline Cast (Auto) (0-5) /lpf U Epithel Cells (Auto) (0-5) /lpf Urine Bacteria (Auto) (Negative) COVID-19 Eval Order Covid19 at [facility] SARS-CoV-2 (PCR) (Negative) 04/22/21 04/22/21 Range/Units 21:24 21:54 WBC (4.8-10.8) K/uL RBC (4.7-6.1) M/uL Hgb (14.0-18.0) g/dL Hct (42-52) % MCV (80-100) fL MCH (25-34) pg MCHC (32-36) g/dL RDW Std Deviation (36.4-46.3) fL RDW Coeff of [place] (11.5-14.5) % Plt Count (130-400) K/uL MPV (7.4-10.4) fL Immature Gran % (Auto) % Neut % (Auto) % Lymph % (Auto) % [place] % (Auto) % Eos % (Auto) % Baso % (Auto) % Neut # (Auto) (1.4-6.5) K/uL Lymph # (Auto) (1.2-3.4) K/uL [place] # (Auto) (0.11-0.59) K/uL Eos # (Auto) (0-0.5) K/uL Baso # (Auto) (0-0.2) K/uL Immature Gran # (Auto) (0.00-0.02) K/uL PT (9.0-12.0) Seconds INR (0.9-1.1) APTT (21.0-31.0) Seconds PTT Ratio Sodium (136-145) mmol/L Potassium (3.5-5.1) mmol/L Chloride (98-107) mmol/L Carbon Dioxide (21-32) mmol/L Anion Gap (3-11) BUN (7-18) mg/dl Creatinine (0.6-1.4) mg/dl Est Cr Clr Drug Dosing ml/min Est GFR ( Amer) ml/min Est GFR (Non-Af Amer) ml/min BUN/Creatinine Ratio (10-20) Glucose (70-99) mg/dl Lactate (0.4-2.0) mmol/L Calcium (8.5-10.1) mg/dl Magnesium (1.8-2.4) mg/dl Total Bilirubin (0.2-1) mg/dl AST (15-37) U/L ALT (12-78) U/L Alkaline Phosphatase (45-117) U/L Troponin I (0-0.045) ng/ml Total Protein (6.4-8.2) gm/dl Albumin (3.4-5.0) gm/dl Globulin (2.5-4.0) gm/dl Albumin/Globulin Ratio (0.9-2) Procalcitonin (0-0.5) ng/ml Urine Color Yellow Urine Appearance Clear (Clear) Urine pH 5.5 (4.5-7.5) Ur Specific [place] 1.016 (1.000-1.030) Urine Protein 1+ H (Negative) Urine Glucose (UA) Negative (Negative) Urine Ketones Trace H (Negative) Urine Blood 3+ H (Negative) Urine Nitrite Negative (Negative) Urine Bilirubin Negative (Negative) Urine Urobilinogen Negative (Negative) Ur Leukocyte Esterase 1+ H (Negative) Urine WBC (Auto) 10-30 H (0-5) /hpf Urine RBC (Auto) >30 H (0-4) /hpf U Hyaline Cast (Auto) 1-5 (0-5) /lpf U Epithel Cells (Auto) 10-20 H (0-5) /lpf Urine Bacteria (Auto) Negative (Negative) COVID-19 Eval Order SARS-CoV-2 (PCR) NEGATIVE (Negative) Administered Medications Discontinued Medications Acetaminophen (Acetaminophen 500 Mg Tab) Confirm Administered Dose 1,000 mg .ROUTE .STK-MED ONE Stop: 04/22/21 22:50 Last Admin: 04/22/21 22:50 Dose: 1,000 mg Documented by: [id number] Sodium Chloride (Nss 1000ml) 1,000 mls @ 999 mls/hr IV .Q1H1M CHARLES Stop: 04/22/21 22:45 Last Infusion: 04/22/21 22:40 Dose: 0 mls/hr Documented by: [id number] Admin: 04/22/21 21:28 Dose: 999 mls/hr Documented by: [id number] Sodium Chloride (Nss 1000ml) 1,000 mls @ 999 mls/hr IV .Q1H1M CHARLES Stop: 04/22/21 21:40 Last Infusion: 04/22/21 22:40 Dose: 0 mls/hr Documented by: [id number] Admin: 04/22/21 21:28 Dose: 999 mls/hr Documented by: [id number] Daptomycin 450 mg/ Syringe 9 mls @ 4.5 mls/min IV NOW ONE; Protocol Stop: 04/22/21 21:09 Last Admin: 04/22/21 21:50 Dose: 4.5 mls/min Documented by: [id number] Ioversol (Optiray 320 100ml) 100 ml IV ONCE ONE Stop: 04/22/21 23:58 Last Admin: 04/22/21 23:57 Dose: 93 ml Documented by: [id number] Imaging Data Radiologist's Impression: Chest X-Ray 04/22/21 20:40 XR chest 1V portable CLINICAL HISTORY: SEPSIS COMPARISON STUDY: No previous studies for comparison. FINDINGS: No pneumothorax. No pleural effusion. No large infiltrates or consolidative lesions are seen. Cardiomediastinal silhouette is within normal limits in size. No significant pulmonary vascular congestion.. Osseous structures: unremarkable IMPRESSION: 1. No acute pulmonary process. ACT 112: Negative or not required by law. The above report was generated using voice recognition software. It may contain grammatical, syntax or spelling errors. Electronically signed by: Suyapa Del Rio DO 04/22/2021 9:57 PM Discharge Plan Visit Data Chief Complaint: Fever Stated Complaint: FEVER ED Provider: Nestor Lewis Discharge Problem: Sepsis, Acute UTI Forms Stand Alone Forms: [employer] Prescriptions Prescriptions: No Action doxycycline hyclate 100 mg tablet 100 mg PO BID 7 Days Qty: 14 RF: 0 Gemtesa 75 mg Tablet 75 mg PO DAILY RF: 0 Referrals Referrals: Ricardo Sarkar MD [Primary Care Provider] - Discharge Problem: Sepsis Qualifiers: Sepsis type: sepsis due to unspecified organism Sepsis acute organ dysfunction status: unspecified Qualified Code(s): A41.9 - Sepsis, unspecified organism
[2021-04-22 21:25] LABS: INR 1.1 (0.9-1.1); Partial Thromboplastin Ratio 1.2; Partial Thromboplastin Time 31.3 Seconds (21.0-31.0); Prothrombin Time 10.8 Seconds (9.0-12.0)
--- NOTE | 2021-04-22 21:59 | XRay Report ---
XR chest 1V portable CLINICAL HISTORY: SEPSIS COMPARISON STUDY: No previous studies for comparison. FINDINGS: No pneumothorax. No pleural effusion. No large infiltrates or consolidative lesions are seen. Cardiomediastinal silhouette is within normal limits in size. No significant pulmonary vascular congestion.. Osseous structures: unremarkable IMPRESSION: 1. No acute pulmonary process. ACT 112: Negative or not required by law. The above report was generated using voice recognition software. It may contain grammatical, syntax o r spelling errors. Electronically signed by: Suyapa Del Rio DO 04/22/2021 9:57 PM
[2021-04-22 22:39] LABS: Appearance Urine Clear (Clear); Bacteria Urine Automated Negative (Negative); Bilirubin Urine Negative (Negative); Blood Urine 3+ (Negative); Color Urine Yellow; Glucose Urine UA Negative (Negative); Ketones Urine Trace (Negative); Leukocyte Esterase Urine 1+ (Negative); Nitrite Urine Negative (Negative); Protein Urine 1+ (Negative); RBC Urine Automated >30 /hpf (0-4); Specific Gravity Urine 1.016 (1.000-1.030); Urobilinogen Urine Negative (Negative); pH Urine 5.5 (4.5-7.5)
[2021-04-22] MEDS ORDERED: ACETAMINOPHEN 500 MG TAB ONE (22:49)
--- NOTE | 2021-04-22 23:23 | History & Physical Report ---
Date of Service April 22, 2021 Assessment & Plan (1) Bladder spasms: Plan: Willie is a 60-year-old gentleman with a notable history of recent urinary retention with stricture, status post surgical Enciso placement on 04/15/2021 who presents to [facility] for evaluation of uptrending fevers in the setting of an indwelling urinary catheter and recent hospitalization, concerning for possible catheter-associated urinary tract infection. Sepsis from Suspected Catheter-associated UTI In the setting of uptrending fevers with a T-max of 38.5 over the course of today, as well as purulent penile discharge, UA with pyuria +LE and hematuria, and some constitutional symptoms in an individual with a recently placed Enciso catheter and 3 days of antibiotics, certainly concern for a developing, catheter-associated UTI in this high-risk patient --> found to be tachycardic with Tm 38.5 in Ed -- s/p NSS 2L Enciso catheter does appear to be draining appropriately Consult urology for aid in management/possible replacement of Enciso --> as this had to be surgically placed, will refrain from removing at this time, can irrigate for now Urine culture reviewed from last week, which did show coagulase negative staph growing - noted Initiate Zosyn for broad-spectrum coverage, including Pseudomonas CT of the abdomen pelvis with contrast ordered for further characterization and investigation of possible infection N.p.o. at midnight in case of possible procedure CBC, CRP in a.m. Blood cultures previously ordered in emergency department, await results Await urine culture results We will collect sample of green discharge and send for culture Monitor urine output Tylenol as needed for fever Code: Full code Diet: NPO at midnight, mIVF @ 80cc/hr - stop after 2 bags Dispo: MS/Tele PPX: SCDs (2) Hypercholesterolemia: (3) Bladder pain: (4) Acute urinary retention: (5) Male erectile disorder: (6) Heavy metal exposure: (7) Elevated prostate specific antigen (PSA): (8) Chronic prostatitis: (9) BPH (benign prostatic hyperplasia): History of Present Illness Primary Care Provider: Ricardo Sarkar MD Willie is a 60-year-old gentleman with a notable history of recent urinary retention with possible stricture, status post surgical Enciso placement on 04/15/2021 who presents to [facility] for evaluation of uptrending fevers. Of note, Willie was reported to have a blockage within his Enciso last week, which did require visit to the ER and consultation with urology to clear. Thereafter, he did start taking ciprofloxacin for prophylaxis in the setting of this clogged catheter. Through the weekend, he reports doing fine. Taking Gimtesa as directed. Then, this morning, took his temperature because he was feeling offrealized it was 99.9. Regardless, he continued traveling up to [place], where after temperatures increased from 101.5-102.3. He called his urologist, who did tell him to report to the ER for further evaluation and parental antibiotics. Subjectively, he reports feeling well overall these last few days. Perhaps some back pain, but no pains elsewhere. Enciso has been draining appropriately. Says may be some discomfort around his catheter, but nothing "out of the ordinary." He has noticed greenish, purulent-like discharge over the course of todaywhich has been new. Endorses a good appetite. No nausea. No vomiting. No diarrhea. No chest pain, palpitations, shortness of breath. In the ER, patient was given 2 L of normal saline via IV and was also given a dose of daptomycin. He reports minimal pain or discomfort at the time of my visit. His T-max throughout his ER course has been 38.5. He was noted to be tachycardic in the low 100s. Allergies Allergy/AdvReac Type Severity Reaction Status Date / Time No Known Allergies Allergy Verified 04/22/21 21:22 Home Medications Medication Instructions Recorded Confirmed Type doxycycline hyclate 100 mg tablet 100 mg PO BID 7 Days #14 tab 04/22/21 04/22/21 Rx vibegron 75 mg tablet (Gemtesa) 75 mg PO DAILY 04/22/21 04/22/21 History Past Med/Surg History Medical History BPH (benign prostatic hyperplasia) Bronchitis Hypercholesterolemia Surgical History History of carpal tunnel repair Hx of LASIK S/P appendectomy S/P tooth extraction Family History Family/Other Colorectal cancer Father Heart disease BPH (benign prostatic hyperplasia) Nephrolithiasis Social History Smoking Status: Never smoker Hx Alcohol Use: Yes Alcohol type: hard liquor Hx Substance Use: No Preferred Language: Tajik Communication Ability: Effective Beliefs That Will Affect Care: None marital status: Single Current Living Situation: Significant Other current occupational status: employed Other Information That Helps Us Care for You: No Feels Safe at Home: Yes Safety Concerns: Feels Safe At This Time Assistive Devices: None Review of Systems Review of Systems: Constitutional: Denies fatigue Eyes: Denies double vision, vision change, eye pain ENT: Denies ear pain, sore throat, sinus pain Cardiovascular: Denies Chest pain, chest pressure, palpitations, extremity swelling Respiratory: Denies shortness of breath, cough, sputum production, difficulty b reathing Gastrointestinal: Denies abdominal pain, nausea, vomiting, constipation, diarrhea Genitourinary: Denies urinary symptoms including dysuria Musculoskeletal: Denies weakness, muscle aches/pain, joint aches/pain Integumentary:Denies rash, lesions, bruising Neurological: Denies headache, numbness, tingling, focal weakness Physical Exam Physical Exam: General: Overall, well-appearing 52-year-old gentleman who is lying back in his hospital bed relaxed upon my arrival. He converses freely and is fully alert and oriented. No acute distress. HEENT: NCAT. Eyes - Sclera are white, anicteric, and without injection. PERRL. EOMs display full ROM bilaterally. Mouth - MMM with no tonsillar edema or exudates. Cardiac: Tachycardic and regular rhythm; S1 and S2 present with no murmurs, rubs, or gallops. Pulmonary: Good respiratory effort with symmetric expansion of the chest. No use of accessory muscles. Lungs were clear to auscultation bilaterally with no crackles or wheezes. Abdominal: Normoactive bowel sounds. Abdomen was soft, nondistended, and non- tender to palpation. : Visual examination of the pelvic region does reveal an in place Enciso. There is evidence of scant, but dried blood on shaft of the penis. There is greenish, purulent appearing discharge within his underwear. Draining yellow urine into bag. Extremities: Upper and lower extremities are warm and well perfused. Radial and dorsalis pedis pulses were 2+ b/l. Capillary refill assessed in UE was < 3 sec. Psych: Well-developed, well-nourished, appropriately dressed for occasion. Behavior is cooperative and appropriate. Affect is WNL. Insight is appropriate. Results & Data Results & Data ([facility]) Vital Signs (Past 12 Hours) Vital Signs Temp Pulse Pulse Resp BP BP Pulse Ox 04/22/21 22:39 38.5 C H 99 H 18 139/75 96 04/22/21 18:55 37.7 C H 123 H 16 145/82 H 97 Supervising Physician Co-Signing Physician Notes Attending addendum: I have physically seen this patient, have supervised the medical residents activities, and agree with the H&P unless as otherwise noted. Assessment and Plan: Sepsis due to catheter associated UTI- Previous bacteria include coag negative staph Placed on daptomycin IV and Zosyn IV due to indwelling Enciso catheter and possible resistant pathogens N.p.o. after midnight for possible urologic procedure in a.m. Follow urine culture and sensitivities Follow blood culture and sensitivities Greenish discharge from around catheter is being cultured. May be a resistant bacterial such as Pseudomonas, and or a sign of allergic reaction to the Enciso material. Patient is anticipating some urologic procedure from urologist with [facility]. Discussed with him the possibility of tamsulosin in the interim, but again he is preferring to wait on medications as at previous hospitalization Consult urology Remaining orders and notations as noted Resident Activity Tracking Resident Involvement: Resident Care Provided Care Provided: Adult [facility] Medicine
[2021-04-22] MEDS ORDERED: OPTIRAY 320 100ml IV ONE (23:57)
[2021-04-23] MEDS ORDERED: ONDANSETRON INJ 2 MG/ML 2 ML VIAL IV PRN ×2 (02:45→03:46)
[2021-04-23] MEDS ORDERED: ACETAMINOPHEN 325 MG TAB PO PRN (03:46)
[2021-04-23] MEDS ORDERED: PIPERACILL/TAZOBAC CONSULT ACTIVE PRN (03:46)
[2021-04-23] MEDS ORDERED: POLYETHYLENE (MIRALAX) 17 GM PACK PO PRN (03:46)
[2021-04-23] MEDS ORDERED: MAGNESIUM HYDROXIDE SUSP 30 ML UDC PO PRN (03:46)
[2021-04-23] MEDS ORDERED: ALUMINUM/MAGNESIUM SUSP 30 ML UDC PO PRN (03:46)
[2021-04-23] MEDS: LACTATED RINGER'S 1,000 ML IV SCH ×2 (03:49→17:07)
[2021-04-23] MEDS: ACETAMINOPHEN 325 MG TAB PO PRN ×4 (04:09→18:20)
[2021-04-23] MEDS ORDERED: PIPERACILLIN/TAZOBACTAM 3.375 GM in DEXTROSE 5% 100 ML IV STA (04:14)
[2021-04-23 06:29] LABS: Basophils # (auto) 0.02 K/uL (0-0.2); Basophils % (auto) 0.2 %; Eosinophils # (auto) 0.01 K/uL (0-0.5); Eosinophils % (auto) 0.1 %; Hematocrit (blood only) 39.2 % (42-52); Hemoglobin 13.5 g/dL (14.0-18.0); Immature Granulocytes # (auto) 0.03 K/uL (0.00-0.02); Immature Granulocytes % (auto) 0.3 %; Lymphocytes # (auto) 0.96 K/uL (1.2-3.4); Lymphocytes % (auto) 9.9 %; Mean Corpuscular Hemoglobin 29.5 pg (25-34); Mean Corpuscular Hgb Conc 34.4 g/dL (32-36); Mean Corpuscular Volume 85.8 fL (80-100); Monocytes # (auto) 0.85 K/uL (0.11-0.59); Monocytes % (auto) 8.7 %; Neutrophils # (auto) 7.85 K/uL (1.4-6.5); Neutrophils % (auto) 80.8 %; Platelet Count 201 K/uL (130-400); RDW Coefficient of Variation 12.5 % (11.5-14.5); RDW Standard Deviation 39.3 fL (36.4-46.3); Red Blood Count 4.57 M/uL (4.7-6.1); White Blood Count 9.72 K/uL (4.8-10.8)
[2021-04-23 07:36] LABS: Albumin Globulin Ratio 0.9 (0.9-2); Bilirubin,Total 1.5 mg/dl (0.2-1); C Reactive Protein 10.7 mg/dl (0-0.29); Calcium 8.4 mg/dl (8.5-10.1); Creatinine Clr Calc Pharmacy 95.9 ml/min; Est GFR (African American) 111.9 ml/min; Est GFR (Non-African American) 96.5 ml/min; Globulin 3.4 gm/dl (2.5-4.0); Potassium 3.5 mmol/L (3.5-5.1); Total Protein 6.4 gm/dl (6.4-8.2)
--- NOTE | 2021-04-23 08:09 | CT Scan Report ---
CT SCAN OF THE ABDOMEN AND PELVIS WITH IV CONTRAST CLINICAL HISTORY: Fever. Enciso catheter. COMPARISON STUDY: No priors. TECHNIQUE: Following the IV administration of 93 cc of Optiray 320, CT scan of the abdomen and pelvi s is performed from the lung bases to the proximal femora. Images are reviewed in the axial, sagittal , and coronal planes. IV contrast was administered without complication. A dose lowering technique wa s utilized adhering to the principles of ALARA. CT DOSE: 344.69 mGy.cm FINDINGS: Lung bases: The heart is normal in size and without pericardial effusion. The lung bases are clear no ting dependent atelectasis. A small hiatal hernia is noted. Liver: The contrast-enhanced liver is normal in size, contour, and attenuation. There is no intrahepa tic biliary ductal dilatation. The hepatic veins and portal veins are patent. Gallbladder: Unremarkable. Spleen: Normal in size and attenuation. Pancreas: Unremarkable. Adrenal glands: Unremarkable. Kidneys: The contrast enhanced kidneys are normal in size and without hydronephrosis. The kidneys enh ance symmetrically. Abdominal vasculature: The abdominal aorta is normal in course and caliber noting moderate atheroscle rotic calcification. Bowel: There is mild colonic diverticulosis without CT evidence of acute diverticulitis. No bowel obs truction is seen. Mild fecal retention is noted throughout the colon. The appendix is not visualized . Peritoneum: There is no intraperitoneal free air or abdominal ascites. There is a small fat-containin g umbilical hernia. Lymphadenopathy: A right iliac chain node on image #20 and 25 measures 1.5 x 1.0 cm. Pelvic viscera: The prostate gland is markedly enlarged and heterogeneous noting median lobe hypertro phy. A Enciso catheter is in place. The bladder wall is thickened and there is pericystic inflammation . Foci of intraluminal gas are nonspecific and may be related to instrumentation. Nodule along the le ft pelvic sidewall measure up to 12 mm. These are best seen on image #345, #346, #352, #369, and #374 A right pelvic sidewall nodule on image 336 measures 11 mm. Skeletal structures: No lytic or blastic lesions are seen. IMPRESSION: 1. The bladder is decompressed from a Enciso catheter. The bladder wall is thickened and there is daria cystic inflammation. Correlate clinically and with urinalysis for evidence of cystitis. 2. Markedly enlarged and heterogeneous prostate gland. 3. There are numerous small nodules/lymph nodes along the pelvic sidewall bilaterally as well as mild ly enlarged right iliac chain lymph nodes. If there is a history of prostate cancer these are concern ing for metastatic disease. 4. Additional findings as above. ACT 112: Positive. There are findings on this exam that require communication between the performing entity and the patient following Patient Test Result Information Act ([place] Act 112) guidelines. Electronically signed by: Francis Truong M.D. 04/23/2021 8:08 AM
--- NOTE | 2021-04-23 10:30 | Urology Consultation ---
Date of Consultation April 23, 2021 Assessment & Plan (1) Acute UTI: 60 year old male admitted for fever and sepsis secondary to suspected complicated UTI. - Plan of care reviewed with Dr. Byrd, urologist data collection associate - Intermittently febrile, Tmax 39.5 this morning, WBC 9.72, Creatinine 0.84 - UC&S, BCx and genital culture pending, on IV Daptomycin and Zosyn, follow cultures - CTAP reviewed - markedly enlarged and heterogeneous prostate gland, no abscess, Enciso in good position - Likely complicated UTI/prostatitis - may have waxing and waning fevers - Maintain Enciso catheter - No acute intervention indicated at this time - Continue supportive care, antibiotics, and management per primary service - Will continue to follow History of Present Illness Reason for Consultation: Enciso, complicated UTI Requesting Physician: Dr. Bailon Attending Physician: Nestor Mcnamara DO History of Present Illness 60 year old male with past medical history of hypercholesterolemia, BPH, chronic prostatitis, elevated PSA admitted for fever and sepsis secondary to suspected c omplicated UTI. Patient presented to [facility] ED on 04/22/21 with complaint of fever prior to arrival. Recent hospitalization for urinary retention with stricture, status post surgical Enciso placement on 04/15/[address] Akins. In ER, Tmax was 38.5. Lab work showed WBC 11.69, Creatinine 1.11, Lactate 1.2. UA 10-30 WBCs, >30 RBCs, 1+ leukocytes, negative for bacteria and nitrates. Urine culture and blood cultures collected. CTAP showed bladder wall thickening and pericystic inflammation; markedly enlarged and heterogeneous prostate gland. ED course included 2 L IV fluids, Daptomycin, and Acetaminophen. He was admitted to hospital medicine service for sepsis, UTI. Our service is consulted for Enciso, complicated UTI. Patient is known to our service, follows with Dr. Drew for history of BPH and elevated PSA. He was seen in follow-up after his recent admission. He was referred to [facility] for consideration of HoLEP. He was on Ciprofloxacin empirically after his office visit, culture eventually grew out Coag negative Staphylococcus and he was switched to Doxycycline yesterday. He developed fever yesterday afternoon prompting him to go to ER. Chart review: Tmax 39.5 - this AM Creatinine 0.84 WBC 9.72 UC&S pending BCx pending Genital culture pending On IV Daptomycin and Zosyn Patient awake, alert and resting in bed. Reports fever this morning, but improved at present time. He reports intermittent fevers and chills, which started yesterday. No suprapubic or flank pain. Notes some mild back pain from being in bed. Tolerating Enciso catheter. No dysuria or hematuria. Enciso intact, patent and draining clear yellow urine. No nausea or vomiting. He is currently NPO. He had his consult with [facility] urologist yesterday, plan is for prostate MRI prior to consideration of surgical intervention for prostate. No additional concerns at this time. Allergies Allergy/AdvReac Type Severity Reaction Status Date / Time No Known Allergies Allergy Verified 04/22/21 21:22 Home Medications Medication Instructions Recorded Confirmed Type doxycycline hyclate 100 mg tablet 100 mg PO BID 7 Days #14 tab 04/22/21 04/22/21 Rx vibegron 75 mg tablet (Gemtesa) 75 mg PO DAILY 04/22/21 04/22/21 History Patient History Medical History BPH (benign prostatic hyperplasia) Bronchitis Hypercholesterolemia Surgical History History of carpal tunnel repair Hx of LASIK S/P appendectomy S/P tooth extraction Family History Family/Other Colorectal cancer Father Heart disease BPH (benign prostatic hyperplasia) Nephrolithiasis Social History Smoking Status: Never smoker Hx Alcohol Use: Yes Alcohol type: hard liquor Hx Substance Use: No Preferred Language: Nauruan Communication Ability: Effective Beliefs That Will Affect Care: None marital status: Single Current Living Situation: Significant Other current occupational status: employed Other Information That Helps Us Care for You: No Feels Safe at Home: Yes Safety Concerns: Feels Safe At This Time Assistive Devices: None Review of Systems Review of Systems: All systems reviewed & are unremarkable except as noted in HPI & below Constitutional: as per Subjective / HPI Gastrointestinal: as per Subjective / HPI Genitourinary: + as per Subjective / HPI Physical Exam Constitutional: well developed, well nourished and comfortable; no acute distress Respiratory: normal respiratory effort and able to speak in complete sentences; no respiratory distress and no labored breathing Cardiovascular: Extremities: no pedal edema Gastrointestinal (Abdomen): Inspection/Auscultation: abdomen normal to inspection; abdomen not distended Musculoskeletal: Head/Neck/Chest: normocephalic and head atraumatic Extremities: extremities normal to inspection Skin: skin warm, mildly flushed Neurologic: moves all extremities and awake Psychiatric: Orientation: alert and oriented x 3 Genitourinary: Enciso intact, patent and draining clear yellow urine Results & Data ([facility]) Vital Signs (Past 12 Hours) Vital Signs Temp Pulse Pulse Resp BP BP Pulse Ox 04/23/21 08:13 39.5 C H 102 H 20 180/83 H 96 04/23/21 05:23 37.2 C 04/23/21 04:43 38.4 C H 04/23/21 04:26 87 04/23/21 04:08 38.4 C H 04/23/21 04:00 39.1 C H 04/23/21 03:50 37.5 C 98 H 16 159/93 H 97 04/23/21 03:14 82 16 140/82 98 04/22/21 23:12 93 H 122/76 04/22/21 22:39 38.5 C H 99 H 18 139/75 96 PG Care Time/CCT Total # of Minutes Spent Total Time Spent with Patient: Total time spent is greater than 50% in coordination of care (as documented) at patient's floor/unit and/or counseling patient: Coding Level of Care Code 23996 Inpt Consult Level 4 Diagnoses Acute UTI N39.0
--- NOTE | 2021-04-23 10:38 | Medical Student Progress Note ---
Date of Service April 23, 2021 Assessment & Plan (1) Bladder spasms: Plan: Willie is a 60-year-old gentleman with a notable history of recent urinary retention with stricture, status post surgical Enciso placement on 04/15/2021 who presents to [facility] for evaluation of uptrending fevers in the setting of an indwelling urinary catheter and recent hospitalization, concerning for possible catheter-associated urinary tract infection. Sepsis from Suspected Catheter-associated UTI In the setting of uptrending fevers with a T-max of 38.5 over the course of today, as well as purulent penile discharge, UA with pyuria +LE and hematuria, and some constitutional symptoms in an individual with a recently placed Enciso catheter and 3 days of antibiotics, certainly concern for a developing, catheter-associated UTI in this high-risk patient CT of the abdomen pelvis with contrast ordered for further characterization and investigation of possible infection Enciso catheter does appear to be draining appropriately -Urology consulted for aid in management/possible replacement of Enciso, ABx management, weigh in on other possible pathology -BCx, UCx, Cx of green discharge still pending Urine culture reviewed from last week, which did show coagulase negative staph growing - noted Continue Zosyn for broad-spectrum coverage, including Pseudomonas Continue NPO in case of possible procedure by urology WBC downtrending (9.72 vs 11.69 04/22); CBC, CRP in a.m. Monitor urine output Tylenol as needed for fever Code: Full code Diet: NPO at midnight, mIVF @ 80cc/hr - stop after 2 bags Dispo: MS/Tele PPX: SCDs (2) BPH (benign prostatic hyperplasia): (3) Bladder pain: (4) Acute urinary retention: (5) Chronic prostatitis: (6) Elevated prostate specific antigen (PSA): (7) Heavy metal exposure: (8) Male erectile disorder: (9) Hypercholesterolemia: Plan: -Recommend starting statin as an outpatient Admission and Anticipated Discharge Date Admission Date: April 23, 2021 Supervising Attestation I personally examined the patient and verified all azul points of history and exam, discussed case, and agree with decision making with Luan Zafar MS4 and Dr Goff. Feeling okay overall. Just on and off fevers and chills. Vitals noted, in general he is awake and alert pleasant no distress. HEENT normocephalic atraumatic mucous membranes moist. Breathing unlabored no accessory muscle use good effort. Skin shows no rashes no pallor or icterus. Neuro without focal neuro deficits. Sepsis related to catheter associated UTIawaiting cultures, continue Zosyn for now, can DC daptomycin given highly unlikely to be gram-positive. Once cultures have resulted, anticipate transition to p.o. antibiotics if possible, given given that catheter was not able to be changed, anticipate probably the better part of 14 days of antibiotic therapy, and ongoing urology follow-up. Otherwise as above Subjective Willie is a 60-year-old gentleman with a notable history of recent urinary retention with possible stricture, status post surgical Enciso placement on 04/15/2021 who presents to [facility] for evaluation of uptrending fevers. Of note, Willie was reported to have a blockage within his Enciso last week, which did require visit to the ER and consultation with urology to clear. Thereafter, he did start taking ciprofloxacin for prophylaxis in the setting of this clogged catheter. Through the weekend, he reports doing fine. Taking Gimtesa as directed. Then, this morning, took his temperature because he was feeling offrealized it was 99.9. Regardless, he continued traveling up to [place], where after temperatures increased from 101.5-102.3. He called his urologist, who did tell him to report to the ER for further evaluation and parental antibiotics. Subjectively, he reports feeling well overall these last few days. Perhaps some back pain, but no pains elsewhere. Enciso has been draining appropriately. Says may be some discomfort around his catheter, but nothing "out of the ordinary." He has noticed greenish, purulent-like discharge over the course of todaywhich has been new. Endorses a good appetite. No nausea. No vomiting. No diarrhea. No chest pain, palpitations, shortness of breath. In the ER, patient was given 2 L of normal saline via IV and was also given a dose of daptomycin. He reports minimal pain or discomfort at the time of my visit. His T-max throughout his ER course has been 38.5. He was noted to be tachycardic in the low 100s. Since admission, patient has been feeling "okay" overall with the exception of having bouts of chills and sweats. He just received Tylenol before I came into the room and hopes this will help minimize his symptoms. He also speaks about having a slight headache. He does not endorse any genital pain, chest pain, shortness of breath, or palpitatons. Review of Systems Review of Systems: All systems reviewed & are unremarkable except as noted in Subjective Constitutional: as per Subjective / HPI, + fever, + chills and + sweats Physical Exam Constitutional: WD/WN, vitals as above Respiratory: normal respiratory effort, lungs clear to auscultation Cardiovascular: RRR, no murmur, no edema Gastrointestinal (Abdomen): normal bowel sounds, soft, nontender, no hepatosplenomegaly Skin: no rashes, warm and dry Genitourinary: bladder normal to palpation; no edematous penis and no erythematous penis Enciso draining - 700 mL dark yellow/orange urine Dried green-brown discharge in undergarment pad -- pad has not been changed since admission Results & Data ([facility]) Vital Signs (Past 12 Hours) Vital Signs Temp Pulse Pulse Resp BP BP Pulse Ox 04/23/21 08:13 39.5 C H 102 H 20 180/83 H 96 04/23/21 05:23 37.2 C 04/23/21 04:43 38.4 C H 04/23/21 04:26 87 04/23/21 04:08 38.4 C H 04/23/21 04:00 39.1 C H 04/23/21 03:50 37.5 C 98 H 16 159/93 H 97 04/23/21 03:14 82 16 140/82 98 04/22/21 23:12 93 H 122/76 04/22/21 22:39 38.5 C H 99 H 18 139/75 96 Laboratory Results Laboratory Results WBC 9.72 K/uL (4.8-10.8) 04/23/21 06:09 RBC 4.57 M/uL (4.7-6.1) L 04/23/21 06:09 Hgb 13.5 g/dL (14.0-18.0) L 04/23/21 06:09 Hct 39.2 % (42-52) L 04/23/21 06:09 MCV 85.8 fL (80-100) 04/23/21 06:09 MCH 29.5 pg (25-34) 04/23/21 06:09 MCHC 34.4 g/dL (32-36) 04/23/21 06:09 RDW Std Deviation 39.3 fL (36.4-46.3) 04/23/21 06:09 RDW Coeff of [place] 12.5 % (11.5-14.5) 04/23/21 06:09 Plt Count 201 K/uL (130-400) 04/23/21 06:09 MPV 9.0 fL (7.4-10.4) 04/23/21 06:09 Immature Gran % (Auto) 0.3 % 04/23/21 06:09 Neut % (Auto) 80.8 % 04/23/21 06:09 Lymph % (Auto) 9.9 % 04/23/21 06:09 [place] % (Auto) 8.7 % 04/23/21 06:09 Eos % (Auto) 0.1 % 04/23/21 06:09 Baso % (Auto) 0.2 % 04/23/21 06:09 Neut # (Auto) 7.85 K/uL (1.4-6.5) H 04/23/21 06:09 Lymph # (Auto) 0.96 K/uL (1.2-3.4) L 04/23/21 06:09 [place] # (Auto) 0.85 K/uL (0.11-0.59) H 04/23/21 06:09 Eos # (Auto) 0.01 K/uL (0-0.5) 04/23/21 06:09 Baso # (Auto) 0.02 K/uL (0-0.2) 04/23/21 06:09 Immature Gran # (Auto) 0.03 K/uL (0.00-0.02) H 04/23/21 06:09 PT 10.8 Seconds (9.0-12.0) 04/22/21 20:50 INR 1.1 (0.9-1.1) 04/22/21 20:50 APTT 31.3 Seconds (21.0-31.0) H 04/22/21 20:50 PTT Ratio 1.2 04/22/21 20:50 Sodium 136 mmol/L (136-145) 04/23/21 06:09 Potassium 3.5 mmol/L (3.5-5.1) 04/23/21 06:09 Chloride 107 mmol/L (98-107) 04/23/21 06:09 Carbon Dioxide 27 mmol/L (21-32) 04/23/21 06:09 Anion Gap 2.0 (3-11) L 04/23/21 06:09 BUN 10 mg/dl (7-18) D 04/23/21 06:09 Creatinine 0.84 mg/dl (0.6-1.4) 04/23/21 06:09 Est Cr Clr Drug Dosing 95.9 ml/min 04/23/21 06:09 Est GFR ( Amer) 111.9 ml/min 04/23/21 06:09 Est GFR (Non-Af Amer) 96.5 ml/min 04/23/21 06:09 BUN/Creatinine Ratio 12.0 (10-20) 04/23/21 06:09 Glucose 104 mg/dl (70-99) H 04/23/21 06:09 Lactate 1.1 mmol/L (0.4-2.0) 04/23/21 06:16 Calcium 8.4 mg/dl (8.5-10.1) L 04/23/21 06:09 Magnesium 1.8 mg/dl (1.8-2.4) 04/22/21 19:49 Total Bilirubin 1.5 mg/dl (0.2-1) H D 04/23/21 06:09 AST 16 U/L (15-37) 04/23/21 06:09 ALT 27 U/L (12-78) 04/23/21 06:09 Alkaline Phosphatase 104 U/L (45-117) 04/23/21 06:09 Troponin I < 0.015 ng/ml (0-0.045) 04/22/21 19:49 C-Reactive Protein 10.70 mg/dl (0-0.29) H 04/23/21 06:09 Total Protein 6.4 gm/dl (6.4-8.2) 04/23/21 06:09 Albumin 3.0 gm/dl (3.4-5.0) L 04/23/21 06:09 Globulin 3.4 gm/dl (2.5-4.0) 04/23/21 06:09 Albumin/Globulin Ratio 0.9 (0.9-2) 04/23/21 06:09 Procalcitonin 0.05 ng/ml (0-0.5) 04/22/21 20:50 Urine Color Yellow 04/22/21 21:54 Urine Appearance Clear (Clear) 04/22/21 21:54 Urine pH 5.5 (4.5-7.5) 04/22/21 21:54 Ur Specific [place] 1.016 (1.000-1.030) 04/22/21 21:54 Urine Protein 1+ (Negative) H 04/22/21 21:54 Urine Glucose (UA) Negative (Negative) 04/22/21 21:54 Urine Ketones Trace (Negative) H 04/22/21 21:54 Urine Blood 3+ (Negative) H 04/22/21 21:54 Urine Nitrite Negative (Negative) 04/22/21 21:54 Urine Bilirubin Negative (Negative) 04/22/21 21:54 Urine Urobilinogen Negative (Negative) 04/22/21 21:54 Ur Leukocyte Esterase 1+ (Negative) H 04/22/21 21:54 Urine WBC (Auto) 10-30 /hpf (0-5) H 04/22/21 21:54 Urine RBC (Auto) >30 /hpf (0-4) H 04/22/21 21:54 U Hyaline Cast (Auto) 1-5 /lpf (0-5) 04/22/21 21:54 U Epithel Cells (Auto) 10-20 /lpf (0-5) H 04/22/21 21:54 Urine Bacteria (Auto) Negative (Negative) 04/22/21 21:54 COVID-19 Eval Order Covid19 at [facility] 04/22/21 21:24 SARS-CoV-2 (PCR) NEGATIVE (Negative) 04/22/21 21:24 Impressions Chest X-Ray 04/22/21 20:40 XR chest 1V portable CLINICAL HISTORY: SEPSIS COMPARISON STUDY: No previous studies for comparison. FINDINGS: No pneumothorax. No pleural effusion. No large infiltrates or consolidative lesions are seen. Cardiomediastinal silhouette is within normal limits in size. No significant pulmonary vascular congestion.. Osseous structures: unremarkable IMPRESSION: 1. No acute pulmonary process. ACT 112: Negative or not required by law. The above report was generated using voice recognition software. It may contain grammatical, syntax or spelling errors. Electronically signed by: Suyapa Del Rio DO 04/22/2021 9:57 PM Abdomen/Pelvis CT 04/22/21 23:13 CT SCAN OF THE ABDOMEN AND PELVIS WITH IV CONTRAST CLINICAL HISTORY: Fever. Enciso catheter. COMPARISON STUDY: No priors. TECHNIQUE: Following the IV administration of 93 cc of Optiray 320, CT scan of the abdomen and pelvis is performed from the lung bases to the proximal femora. Images are reviewed in the axial, sagittal, and coronal planes. IV contrast was administered without complication. A dose lowering technique was utilized adhering to the principles of ALARA. CT DOSE: 344.69 mGy.cm FINDINGS: Lung bases: The heart is normal in size and without pericardial effusion. The lung bases are clear noting dependent atelectasis. A small hiatal hernia is noted. Liver: The contrast-enhanced liver is normal in size, contour, and attenuation. There is no intrahepatic biliary ductal dilatation. The hepatic veins and portal veins are patent. Gallbladder: Unremarkable. Spleen: Normal in size and attenuation. Pancreas: Unremarkable. Adrenal glands: Unremarkable. Kidneys: The contrast enhanced kidneys are normal in size and without hydronephrosis. The kidneys enhance symmetrically. Abdominal vasculature: The abdominal aorta is normal in course and caliber noting moderate atherosclerotic calcification. Bowel: There is mild colonic diverticulosis without CT evidence of acute diverticulitis. No bowel obstruction is seen. Mild fecal retention is noted throughout the colon. The appendix is not visualized. Peritoneum: There is no intraperitoneal free air or abdominal ascites. There is a small fat-containing umbilical hernia. Lymphadenopathy: A right iliac chain node on image #20 and 25 measures 1.5 x 1.0 cm. Pelvic viscera: The prostate gland is markedly enlarged and heterogeneous noting median lobe hypertrophy. A Enciso catheter is in place. The bladder wall is thickened and there is pericystic inflammation. Foci of intraluminal gas are nonspecific and may be related to instrumentation. Nodule along the left pelvic sidewall measure up to 12 mm. These are best seen on image #345, #346, #352, #369, and #374 A right pelvic sidewall nodule on image 336 measures 11 mm. Skeletal structures: No lytic or blastic lesions are seen. IMPRESSION: 1. The bladder is decompressed from a Enciso catheter. The bladder wall is thickened and there is pericystic inflammation. Correlate clinically and with urinalysis for evidence of cystitis. 2. Markedly enlarged and heterogeneous prostate gland. 3. There are numerous small nodules/lymph nodes along the pelvic sidewall bilaterally as well as mildly enlarged right iliac chain lymph nodes. If there is a history of prostate cancer these are concerning for metastatic disease. 4. Additional findings as above. ACT 112: Positive. There are findings on this exam that require communication between the performing entity and the patient following Patient Test Result Information Act ([place] Act 112) guidelines. Electronically signed by: Francis Truong M.D. 04/23/2021 8:08 AM Resident Activity Tracking Resident Involvement: Resident Care Provided Care Provided: [facility] Medicine
[2021-04-23] MEDS: PIPERACILLIN/TAZOBACTAM 3.375 GM in DEXTROSE 5% 100 ML IV SCH ×2 (10:56→17:10)
--- NOTE | 2021-04-23 11:23 | Hospitalist Progress Note ---
Date of Service April 23, 2021 Assessment & Plan Admission and Anticipated Discharge Date Admission Date: April 23, 2021 Results & Data Results & Data ([facility]) Vital Signs (Past 12 Hours) Vital Signs Temp Pulse Pulse Resp BP BP Pulse Ox 04/23/21 08:13 39.5 C H 102 H 20 180/83 H 96 04/23/21 05:23 37.2 C 04/23/21 04:43 38.4 C H 04/23/21 04:26 87 04/23/21 04:08 38.4 C H 04/23/21 04:00 39.1 C H 04/23/21 03:50 37.5 C 98 H 16 159/93 H 97 04/23/21 03:14 82 16 140/82 98
[2021-04-23] MEDS: MIRABEGRON ER 25 MG TAB PO SCH (12:11)
--- NOTE | 2021-04-23 15:36 | Electrocardiogram Report ---
Test Reason : Blood Pressure : / mmHG Vent. Rate : 092 BPM Atrial Rate : 092 BPM P-R Int : 120 ms QRS Dur : 074 ms QT Int : 344 ms P-R-T Axes : 047 050 044 degrees QTc Int : 425 ms Normal sinus rhythm Normal ECG When compared with ECG of 12-AUG-2017 17:30, No significant change was found Confirmed by Ricardo Donaldson ([id number]) on 04/23/2021 3:36:01 PM Referred By: REFERRED SELF Confirmed By:Ricardo Donaldson
[2021-04-23] MEDS ORDERED: ACETAMINOPHEN 1000 MG/100 ML IV IV PRN (19:07)
--- NOTE | 2021-04-23 19:34 | Billing Data ---
Date of Service April 23, 2021 Coding Level of Care Code 77972 Subseq Hosp Care Lvl 3
[2021-04-23] MEDS ORDERED: IBUPROFEN 800 MG TAB PO STA (20:30)
[2021-04-23] MEDS ORDERED: DAPTOmycin 425 MG in SYRINGE 0 ML IV SCH (22:00)
[2021-04-24] MEDS: PIPERACILLIN/TAZOBACTAM 3.375 GM in DEXTROSE 5% 100 ML IV SCH ×3 (01:27→17:40)
--- NOTE | 2021-04-24 03:29 | Billing Data ---
Date of Service April 24, 2021 Coding Level of Care Code 27903 Initial Inpt Care Lvl 2
[2021-04-24 08:12] LABS: Basophils # (auto) 0.03 K/uL (0-0.2); Basophils % (auto) 0.4 %; Eosinophils # (auto) 0.06 K/uL (0-0.5); Eosinophils % (auto) 0.7 %; Hematocrit (blood only) 39.3 % (42-52); Hemoglobin 13.4 g/dL (14.0-18.0); Immature Granulocytes # (auto) 0.01 K/uL (0.00-0.02); Immature Granulocytes % (auto) 0.1 %; Lymphocytes # (auto) 1.19 K/uL (1.2-3.4); Lymphocytes % (auto) 14.7 %; Mean Corpuscular Hemoglobin 29.2 pg (25-34); Mean Corpuscular Hgb Conc 34.1 g/dL (32-36); Mean Corpuscular Volume 85.6 fL (80-100); Monocytes # (auto) 0.78 K/uL (0.11-0.59); Monocytes % (auto) 9.7 %; Neutrophils # (auto) 6.01 K/uL (1.4-6.5); Neutrophils % (auto) 74.4 %; Platelet Count 198 K/uL (130-400); RDW Coefficient of Variation 12.7 % (11.5-14.5); Red Blood Count 4.59 M/uL (4.7-6.1); White Blood Count 8.08 K/uL (4.8-10.8)
--- NOTE | 2021-04-24 08:15 | Hospitalist Progress Note ---
Date of Service April 24, 2021 Assessment & Plan Admission and Anticipated Discharge Date Admission Date: April 23, 2021 Results & Data Results & Data ([facility]) Vital Signs (Past 12 Hours) Vital Signs Temp Pulse Pulse Resp BP Pulse Ox 04/24/21 07:13 85 04/24/21 07:00 36.6 C 71 18 119/69 99 04/24/21 03:28 36.4 C L 67 18 121/82 97 04/24/21 01:00 36.4 C L 04/23/21 23:00 77 04/23/21 22:24 37 C 81 18 108/65 96 04/23/21 20:18 38 C H Resident Activity Tracking Resident Involvement: Resident Care Provided Care Provided: Adult Hospital Medicine
[2021-04-24] MEDS: MIRABEGRON ER 25 MG TAB PO SCH (08:18)
[2021-04-24 08:46] LABS: Calcium 8.9 mg/dl (8.5-10.1); Creatinine Clr Calc Pharmacy 108.8 ml/min; Est GFR (African American) 117.8 ml/min; Est GFR (Non-African American) 101.7 ml/min; Potassium 3.6 mmol/L (3.5-5.1)
--- NOTE | 2021-04-24 10:16 | Urology Progress Note ---
Date of Service April 24, 2021 Assessment & Plan (1) Acute UTI: Plan: 60 year old male admitted for fever and sepsis secondary to suspected complicated UTI. - Overall he is feeling better today. - Afebrile, VSS. - Labs reviewed - WBC 8.08, Creatinine 0.74 - UC&S preliminary gram negative bacilli; BCx and genital culture pending, on IV Daptomycin and Zosyn - No acute intervention indicated at this time. - Maintain Enciso catheter. - Continue supportive care and antibiotic therapy, follow cultures - Will arrange outpatient follow-up with urology next week for cystoscopy and catheter exchange with Dr. Drew. - Thank you for allowing us to participate in the acute care of Mr. Sánchez. Please reconsult us with additional questions, concerns or changes in patient status. Admission and Anticipated Discharge Date Admission Date: April 23, 2021 Subjective Pt examined at bedside this AM. Awake, sitting up in bed on arrival. He reports feeling much better this morning. No fevers overnight. No chills. Denies suprapubic or flank pain. Tolerating Enciso catheter. No dysuria or hematuria. Enciso intact, patent and draining clear yellow urine. No nausea or vomiting. Review of Systems Constitutional: as per Subjective / HPI Gastrointestinal: as per Subjective / HPI Genitourinary: + as per Subjective / HPI Physical Exam Constitutional: well developed, well nourished and comfortable; no acute distress Respiratory: normal respiratory effort and able to speak in complete sentences; no respiratory distress and no labored breathing Cardiovascular: Extremities: no pedal edema Gastrointestinal (Abdomen): Inspection/Auscultation: abdomen normal to inspection; abdomen not distended Musculoskeletal: Head/Neck/Chest: normocephalic and head atraumatic Extremities: extremities normal to inspection Neurologic: moves all extremities and awake Psychiatric: Orientation: alert and oriented x 3 Genitourinary: Enciso intact, patent and draining clear yellow urine Results & Data ([facility]) Vital Signs (Past 12 Hours) Vital Signs Temp Pulse Pulse Resp BP Pulse Ox 04/24/21 07:13 85 04/24/21 07:00 36.6 C 71 18 119/69 99 04/24/21 03:28 36.4 C L 67 18 121/82 97 04/24/21 01:00 36.4 C L 04/23/21 23:00 77 04/23/21 22:24 37 C 81 18 108/65 96 PG Care Time/CCT Total # of Minutes Spent Total Time Spent with Patient: Total time spent is greater than 50% in coordination of care (as documented) at patient's floor/unit and/or counseling patient: Coding Level of Care Code 45138 Subseq Hosp Care Lvl 2 Diagnoses Acute UTI N39.0
--- NOTE | 2021-04-24 10:50 | Medical Student Progress Note ---
Date of Service April 24, 2021 Assessment & Plan (1) Bladder spasms: Plan: Willie is a 60-year-old gentleman with a notable history of recent urinary retention with stricture, status post surgical Merritt placement on 04/15/2021 who presents to [facility] for evaluation of uptrending fevers in the setting of an indwelling urinary catheter and recent hospitalization, concerning for possible catheter-associated urinary tract infection. Sepsis from Suspected Catheter-associated UTI In the setting of uptrending fevers with a T-max of 38.5 over the course of today, as well as purulent penile discharge, UA with pyuria +LE and hematuria, and some constitutional symptoms in an individual with a recently placed Merritt catheter and 3 days of antibiotics, certainly concern for a developing, catheter-associated UTI in this high-risk patient CT of the abdomen pelvis: thickened bladder wall & pericystic inflammation -UCx: Gram negative bacilli; sensitivities pending -BCx: no growth after 24h -Cx of green discharge: mixed skin microbiota Continue Zosyn for broad-spectrum coverage until sensitivities come back for target ABx treatment -Urology consulted; agreed with course of treatment Merritt catheter draining appropriately WBC downtrending (8.08 04/24 vs 9.72 / vs 11.69 7/); CRP in a.m. Monitor urine output Tylenol as needed for fever -Regular diet Code: Full code Diet: Full diet Dispo: MS/Tele PPX: SCDs (2) BPH (benign prostatic hyperplasia): (3) Bladder pain: (4) Acute urinary retention: (5) Chronic prostatitis: (6) Elevated prostate specific antigen (PSA): (7) Heavy metal exposure: (8) Male erectile disorder: (9) Hypercholesterolemia: Plan: -Recommend starting statin as an outpatient Admission and Anticipated Discharge Date Admission Date: April 23, 2021 Supervising Attestation I personally examined the patient and verified all azul points of history and exam, discussed case, and agree with decision making with Luan Zaafr MS4 and Dr Goff. Feeling better than yesterday. Last fever was last night. Final culture is still pending. Vitals noted, in general he is awake and alert pleasant no distress. HEENT normocephalic atraumatic mucous membranes moist. Breathing unlabored no accessory muscle use good effort. Skin shows no rashes no pallor or icterus. Neuro without focal neuro deficits. Sepsis related to catheter associated UTIawaiting final cultures and sensitivities, continue Zosyn for now, outpatient urology follow-up Otherwise as above Subjective Overall, patient is doing well and did well overnight. He's sitting up in bed. Says he has not felt febrile since last evening and has not had any chills, nausea, or vomiting. He also denies any abdominal and back pain and has not noticed any discolored urine in his Merritt. Review of Systems Constitutional: as per Subjective / HPI; no fever, no chills, no sweats and no fatigue Physical Exam Constitutional: WD/WN, vitals as above Respiratory: normal respiratory effort, lungs clear to auscultation Cardiovascular: RRR, no murmur, no edema Gastrointestinal (Abdomen): normal bowel sounds, soft, nontender, no hepatosplenomegaly Skin: no rashes, warm and dry Genitourinary: bladder normal to palpation; no edematous penis and no erythematous penis (merritt in place; no discharge from penis) Results & Data ([facility]) Vital Signs (Past 12 Hours) Vital Signs Temp Pulse Pulse Resp BP Pulse Ox 04/24/21 07:13 85 04/24/21 07:00 36.6 C 71 18 119/69 99 04/24/21 03:28 36.4 C L 67 18 121/82 97 04/24/21 01:00 36.4 C L 04/23/21 23:00 77 Laboratory Results Laboratory Results WBC 8.08 K/uL (4.8-10.8) 04/24/21 07:40 RBC 4.59 M/uL (4.7-6.1) L 04/24/21 07:40 Hgb 13.4 g/dL (14.0-18.0) L 04/24/21 07:40 Hct 39.3 % (42-52) L 04/24/21 07:40 MCV 85.6 fL (80-100) 04/24/21 07:40 MCH 29.2 pg (25-34) 04/24/21 07:40 MCHC 34.1 g/dL (32-36) 04/24/21 07:40 RDW Std Deviation 40.0 fL (36.4-46.3) 04/24/21 07:40 RDW Coeff of Odilia 12.7 % (11.5-14.5) 04/24/21 07:40 Plt Count 198 K/uL (130-400) 04/24/21 07:40 MPV 9.0 fL (7.4-10.4) 04/24/21 07:40 Immature Gran % (Auto) 0.1 % 04/24/21 07:40 Neut % (Auto) 74.4 % 04/24/21 07:40 Lymph % (Auto) 14.7 % 04/24/21 07:40 Crenshaw % (Auto) 9.7 % 04/24/21 07:40 Eos % (Auto) 0.7 % 04/24/21 07:40 Baso % (Auto) 0.4 % 04/24/21 07:40 Neut # (Auto) 6.01 K/uL (1.4-6.5) 04/24/21 07:40 Lymph # (Auto) 1.19 K/uL (1.2-3.4) L 04/24/21 07:40 Crenshaw # (Auto) 0.78 K/uL (0.11-0.59) H 04/24/21 07:40 Eos # (Auto) 0.06 K/uL (0-0.5) 04/24/21 07:40 Baso # (Auto) 0.03 K/uL (0-0.2) 04/24/21 07:40 Immature Gran # (Auto) 0.01 K/uL (0.00-0.02) 04/24/21 07:40 PT 10.8 Seconds (9.0-12.0) 04/22/21 20:50 INR 1.1 (0.9-1.1) 04/22/21 20:50 APTT 31.3 Seconds (21.0-31.0) H 04/22/21 20:50 PTT Ratio 1.2 04/22/21 20:50 Sodium 136 mmol/L (136-145) 04/24/21 07:40 Potassium 3.6 mmol/L (3.5-5.1) 04/24/21 07:40 Chloride 105 mmol/L (98-107) 04/24/21 07:40 Carbon Dioxide 24 mmol/L (21-32) 04/24/21 07:40 Anion Gap 7.0 (3-11) 04/24/21 07:40 BUN 13 mg/dl (7-18) 04/24/21 07:40 Creatinine 0.74 mg/dl (0.6-1.4) 04/24/21 07:40 Est Cr Clr Drug Dosing 108.8 ml/min 04/24/21 07:40 Est GFR ( Amer) 117.8 ml/min 04/24/21 07:40 Est GFR (Non-Af Amer) 101.7 ml/min 04/24/21 07:40 BUN/Creatinine Ratio 18.0 (10-20) 04/24/21 07:40 Glucose 94 mg/dl (70-99) 04/24/21 07:40 Lactate 1.1 mmol/L (0.4-2.0) 04/23/21 06:16 Calcium 8.9 mg/dl (8.5-10.1) 04/24/21 07:40 Magnesium 1.8 mg/dl (1.8-2.4) 04/22/21 19:49 Total Bilirubin 1.5 mg/dl (0.2-1) H D 04/23/21 06:09 AST 16 U/L (15-37) 04/23/21 06:09 ALT 27 U/L (12-78) 04/23/21 06:09 Alkaline Phosphatase 104 U/L (45-117) 04/23/21 06:09 Troponin I < 0.015 ng/ml (0-0.045) 04/22/21 19:49 C-Reactive Protein 10.70 mg/dl (0-0.29) H 04/23/21 06:09 Total Protein 6.4 gm/dl (6.4-8.2) 04/23/21 06:09 Albumin 3.0 gm/dl (3.4-5.0) L 04/23/21 06:09 Globulin 3.4 gm/dl (2.5-4.0) 04/23/21 06:09 Albumin/Globulin Ratio 0.9 (0.9-2) 04/23/21 06:09 Procalcitonin 0.05 ng/ml (0-0.5) 04/22/21 20:50 Urine Color Yellow 04/22/21 21:54 Urine Appearance Clear (Clear) 04/22/21 21:54 Urine pH 5.5 (4.5-7.5) 04/22/21 21:54 Ur Specific [place] 1.016 (1.000-1.030) 04/22/21 21:54 Urine Protein 1+ (Negative) H 04/22/21 21:54 Urine Glucose (UA) Negative (Negative) 04/22/21 21:54 Urine Ketones Trace (Negative) H 04/22/21 21:54 Urine Blood 3+ (Negative) H 04/22/21 21:54 Urine Nitrite Negative (Negative) 04/22/21 21:54 Urine Bilirubin Negative (Negative) 04/22/21 21:54 Urine Urobilinogen Negative (Negative) 04/22/21 21:54 Ur Leukocyte Esterase 1+ (Negative) H 04/22/21 21:54 Urine WBC (Auto) 10-30 /hpf (0-5) H 04/22/21 21:54 Urine RBC (Auto) >30 /hpf (0-4) H 04/22/21 21:54 U Hyaline Cast (Auto) 1-5 /lpf (0-5) 04/22/21 21:54 U Epithel Cells (Auto) 10-20 /lpf (0-5) H 04/22/21 21:54 Urine Bacteria (Auto) Negative (Negative) 04/22/21 21:54 COVID-19 Eval Order Covid19 at [facility] 04/22/21 21:24 SARS-CoV-2 (PCR) NEGATIVE (Negative) 04/22/21 21:24 Impressions Chest X-Ray 04/22/21 20:40 XR chest 1V portable CLINICAL HISTORY: SEPSIS COMPARISON STUDY: No previous studies for comparison. FINDINGS: No pneumothorax. No pleural effusion. No large infiltrates or consolidative lesions are seen. Cardiomediastinal silhouette is within normal limits in size. No significant pulmonary vascular congestion.. Osseous structures: unremarkable IMPRESSION: 1. No acute pulmonary process. ACT 112: Negative or not required by law. The above report was generated using voice recognition software. It may contain grammatical, syntax or spelling errors. Electronically signed by: Suyapa Del Rio DO 04/22/2021 9:57 PM Abdomen/Pelvis CT 04/22/21 23:13 CT SCAN OF THE ABDOMEN AND PELVIS WITH IV CONTRAST CLINICAL HISTORY: Fever. Merritt catheter. COMPARISON STUDY: No priors. TECHNIQUE: Following the IV administration of 93 cc of Optiray 320, CT scan of the abdomen and pelvis is performed from the lung bases to the proximal femora. Images are reviewed in the axial, sagittal, and coronal planes. IV contrast was administered without complication. A dose lowering technique was utilized adhering to the principles of ALARA. CT DOSE: 344.69 mGy.cm FINDINGS: Lung bases: The heart is normal in size and without pericardial effusion. The lung bases are clear noting dependent atelectasis. A small hiatal hernia is noted. Liver: The contrast-enhanced liver is normal in size, contour, and attenuation. There is no intrahepatic biliary ductal dilatation. The hepatic veins and portal veins are patent. Gallbladder: Unremarkable. Spleen: Normal in size and attenuation. Pancreas: Unremarkable. Adrenal glands: Unremarkable. Kidneys: The contrast enhanced kidneys are normal in size and without hydronephrosis. The kidneys enhance symmetrically. Abdominal vasculature: The abdominal aorta is normal in course and caliber noting moderate atherosclerotic calcification. Bowel: There is mild colonic diverticulosis without CT evidence of acute diverticulitis. No bowel obstruction is seen. Mild fecal retention is noted throughout the colon. The appendix is not visualized. Peritoneum: There is no intraperitoneal free air or abdominal ascites. There is a small fat-containing umbilical hernia. Lymphadenopathy: A right iliac chain node on image #20 and 25 measures 1.5 x 1.0 cm. Pelvic viscera: The prostate gland is markedly enlarged and heterogeneous noting median lobe hypertrophy. A Merritt catheter is in place. The bladder wall is thickened and there is pericystic inflammation. Foci of intraluminal gas are nonspecific and may be related to instrumentation. Nodule along the left pelvic sidewall measure up to 12 mm. These are best seen on image #345, #346, #352, #369, and #374 A right pelvic sidewall nodule on image 336 measures 11 mm. Skeletal structures: No lytic or blastic lesions are seen. IMPRESSION: 1. The bladder is decompressed from a Merritt catheter. The bladder wall is thickened and there is pericystic inflammation. Correlate clinically and with urinalysis for evidence of cystitis. 2. Markedly enlarged and heterogeneous prostate gland. 3. There are numerous small nodules/lymph nodes along the pelvic sidewall bilaterally as well as mildly enlarged right iliac chain lymph nodes. If there is a history of prostate cancer these are concerning for metastatic disease. 4. Additional findings as above. ACT 112: Positive. There are findings on this exam that require communication between the performing entity and the patient following Patient Test Result Information Act ([place] Act 112) guidelines. Electronically signed by: Francis Truong M.D. 04/23/2021 8:08 AM Medications Administered Current Inpatient Medications Acetaminophen (Acetaminophen 1000 Mg/100 Ml Iv) 1,000 mg IV Q8H PRN PRN Reason: Pain or Fever Stop: 04/26/21 19:06 Al Hydrox/Mg Hydrox/Simethicone (Aluminum/Magnesium Susp 30 Ml Udc) 15 ml PO Q4H PRN PRN Reason: Dyspepsia Stop: 05/23/21 03:45 Piperacillin Sod/Tazobactam (Sod 3.375 gm/ Dextrose) 115 mls @ 28.75 mls/hr IV Q8H CHARLES; Protocol Stop: 05/03/21 09:59 Last Admin: 04/24/21 10:00 Dose: 28.8 mls/hr Documented by: Magnesium Hydroxide (Magnesium Hydroxide Susp 30 Ml Udc) 30 ml PO Q12H PRN PRN Reason: Constipation Stop: 05/23/21 03:45 Mirabegron (Mirabegron Er 25 Mg Tab) 25 mg PO DAILY CHARLES Stop: 05/23/21 11:59 Last Admin: 04/24/21 08:18 Dose: 25 mg Documented by: Miscellaneous Information (Piperacill/Tazobac Consult Active) 1 ea N/A UD PRN PRN Reason: Consult Stop: 05/23/21 03:45 Ondansetron HCl (Ondansetron Inj 2 Mg/Ml 2 Ml Vial) 4 mg IV Q6H PRN PRN Reason: Nausea Stop: 05/23/21 02:44 Ondansetron HCl (Ondansetron Inj 2 Mg/Ml 2 Ml Vial) 4 mg IV Q6H PRN PRN Reason: Nausea Stop: 05/23/21 03:45 Polyethylene Glycol (Polyethylene (Miralax) 17 Gm Pack) 17 gm PO DAILY PRN PRN Reason: Constipation Stop: 05/23/21 03:45 Resident Activity Tracking Resident Involvement: Resident Care Provided Care Provided: Adult [facility] Medicine
[2021-04-24] MEDS ORDERED: Nursing to Pharmacy Communication SCH (17:15)
--- NOTE | 2021-04-24 19:17 | Billing Data ---
Date of Service April 24, 2021 Coding Level of Care Code 34702 Subseq Hosp Care Lvl 3
[2021-04-25] MEDS: PIPERACILLIN/TAZOBACTAM 3.375 GM in DEXTROSE 5% 100 ML IV SCH ×2 (02:28→09:39)
[2021-04-25 07:57] VITALS: O2SAT 98
[2021-04-25 07:57] LABS: Basophils # (auto) 0.04 K/uL (0-0.2); Basophils % (auto) 0.5 %; Eosinophils # (auto) 0.14 K/uL (0-0.5); Eosinophils % (auto) 1.8 %; Hematocrit (blood only) 41.6 % (42-52); Hemoglobin 14.5 g/dL (14.0-18.0); Immature Granulocytes # (auto) 0.02 K/uL (0.00-0.02); Immature Granulocytes % (auto) 0.3 %; Lymphocytes % (auto) 20.7 %; Mean Corpuscular Hemoglobin 29.8 pg (25-34); Mean Corpuscular Hgb Conc 34.9 g/dL (32-36); Mean Corpuscular Volume 85.4 fL (80-100); Mean Platelet Volume 9.3 fL (7.4-10.4); Monocytes # (auto) 0.76 K/uL (0.11-0.59); Monocytes % (auto) 9.8 %; Neutrophils # (auto) 5.17 K/uL (1.4-6.5); Neutrophils % (auto) 66.9 %; Platelet Count 273 K/uL (130-400); RDW Coefficient of Variation 12.7 % (11.5-14.5); RDW Standard Deviation 39.6 fL (36.4-46.3); Red Blood Count 4.87 M/uL (4.7-6.1); White Blood Count 7.73 K/uL (4.8-10.8)
[2021-04-25 08:23] LABS: BUN Creatinine Ratio 15.4 (10-20); Calcium 9.4 mg/dl (8.5-10.1); Creatinine Clr Calc Pharmacy 85.7 ml/min; Est GFR (African American) 103.2 ml/min; Potassium 3.4 mmol/L (3.5-5.1)
[2021-04-25] MEDS: MIRABEGRON ER 25 MG TAB PO SCH (08:31)
[2021-04-25] MEDS ORDERED: GEMTESA PO SCH (09:00)
--- NOTE | 2021-04-25 09:43 | Med Student Discharge Summary ---
Date of Service April 25, 2021 Admission HPI Per Admitting Provider Willie is a 60-year-old gentleman with a notable history of recent urinary retention with possible stricture, status post surgical Lala placement on 04/15/2021 who presents to [facility] for evaluation of uptrending fevers. Of note, Willie was reported to have a blockage within his Lala last week, which did require visit to the ER and consultation with urology to clear. Thereafter, he did start taking ciprofloxacin for prophylaxis in the setting of this clogged catheter. Through the weekend, he reports doing fine. Taking Gimtesa as directed. Then, this morning, took his temperature because he was feeling offrealized it was 99.9. Regardless, he continued traveling up to [place], where after temperatures increased from 101.5-102.3. He called his urologist, who did tell him to report to the ER for further evaluation and parental antibiotics. Subjectively, he reports feeling well overall these last few days. Perhaps some back pain, but no pains elsewhere. Lala has been draining appropriately. Says may be some discomfort around his catheter, but nothing "out of the ordinary." He has noticed greenish, purulent-like discharge over the course of todaywhich has been new. Endorses a good appetite. No nausea. No vomiting. No diarrhea. No chest pain, palpitations, shortness of breath. In the ER, patient was given 2 L of normal saline via IV and was also given a dose of daptomycin. He reports minimal pain or discomfort at the time of my visit. His T-max throughout his ER course has been 38.5. He was noted to be tachycardic in the low 100s. Admission Exam (Per Admitting) Constitutional WD/WN, vitals as above well developed, well nourished and comfortable; no acute distress Respiratory normal respiratory effort, lungs clear to auscultation normal respiratory effort and able to speak in complete sentences; no respiratory distress and no labored breathing Cardiovascular RRR, no murmur, no edema Extremities: no pedal edema Gastrointestinal (Abdomen) normal bowel sounds, soft, nontender, no hepatosplenomegaly Inspection/Auscultation: abdomen normal to inspection; abdomen not distended Musculoskeletal Head/Neck/Chest: normocephalic and head atraumatic Extremities: extremities normal to inspection Skin no rashes, warm and dry Neurologic moves all extremities and awake Psychiatric Orientation: alert and oriented x 3 Genitourinary bladder normal to palpation; no edematous penis and no erythematous penis (lala in place; no discharge from penis) Discharge Data Consultations 04/22/21 22:26 ED Decision to Admit Stat 04/23/21 03:46 Consult Urology Routine Hospital Course (1) Bladder spasms: Willie is a 60-year-old gentleman with a notable history of recent urinary retention with stricture, status post surgical Lala placement on 04/15/2021 who presents to [facility] for evaluation of uptrending fevers in the setting of an indwelling urinary catheter and recent hospitalization, concerning for possible catheter-associated urinary tract infection. Sepsis from Suspected Catheter-associated UTI In the setting of uptrending fevers with a T-max of 38.5 over the course of today, as well as purulent penile discharge, UA with pyuria +LE and hematuria, a nd some constitutional symptoms in an individual with a recently placed Lala catheter and 3 days of antibiotics, certainly concern for a developing, catheter-associated UTI in this high-risk patient CT of the abdomen pelvis: thickened bladder wall & pericystic inflammation WBC downtrending (7.73: 04/25 vs 8.08: 04/24 vs 9.72: 04/23 vs 11.69: 04/22) -UCx: E Coli; Sensitivities include: Augmentin, Unasyn, Ertapenem, Gentamicin, Meropenem, Nitrofurantoin, Tobramycin, and Zosyn -Will be discharged on Augmentin 875 mg BID and Nitrofurantoin 100 mg BID PO x 12 days due to resistance patterns -BCx: no growth after 48h -Cx of green discharge: mixed skin microbiota -Urology consulted; agreed with course of treatment Lala catheter draining appropriately Monitor urine output Tylenol as needed for fever (2) BPH (benign prostatic hyperplasia): (3) Bladder pain: (4) Acute urinary retention: (5) Chronic prostatitis: (6) Elevated prostate specific antigen (PSA): (7) Heavy metal exposure: (8) Male erectile disorder: (9) Hypercholesterolemia: -Recommend starting statin as an outpatient Discharge Plan Discharge Items Patient Disposition: Home - Self-Care Reason For Visit: SEPSIS DUE TO UTI, INDWELLING LALA Discharge Diagnosis: complicated UTI Activity: Per Instructions section Non-emergency contact: Primary Care Provider and Urologist Call non-emergency contact if: your symptoms worsen Follow-up/Referrals: Ricardo Sarkar MD [Primary Care Provider] - 05/03/21 2:10 pm (Breann Brown PA-C) Diet: Regular Addtl Attending Provider Instructions: You were admitted to the hospital for a complex urinary tract infection (UTI). You were treated with antibiotics. Complicated Urinary Tract Infection Your infection was likely associated to your urinary catheter. Your catheter was placed because your enlarged prostate (and spasm) that was blocking your urine from coming out. However, the catheter can also act as a shortcut for bacteria to invade your bladder. After talking with urology we determined that you should continue to keep the catheter in place at this time, because it is more important that you are able to urinate. We have placed you on two antibiotics, Augmentin and Macrobid that we found to be very effective based on your urine culture, to take after discharge for 12 days to treat your urinary tract infec tion. At the end of your antibiotics course your urinary tract infection should be resolved, but since you have a catheter you will continue to be at risk for additional urinary tract infections. Please follow up with your urologist to manage your enlarged prostate. Enlarged Prostate The plan to address your enlarged prostate will involve working to schedule for a T3 MRI to evaluate for prostate cancer prior to getting a procedure to treat your enlarged prostate. Your prostate is at a size that blocks urine from exiting your bladder, and removing that blockage will be the fasted way of improving your quality of life and reducing your change on infection. A discharge summary will be sent to your primary care physician to ensure continuity of care. Please bring this discharge summary with you to your next office appointment so that your provider can review it at that time. Please follow up with your urologist to manage your BPH and indwelling lala catheter. Follow-up appointments: Make a follow-up appointment with your PCP within the next week. It is very important that you follow up with them shortly after discharge from the hospital. Medications: Your medication list has been reviewed and reconciled upon discharge to ensure accuracy and continuity of care. An updated list of all your medications is included with your hospital discharge paperwork. Please review this list closely, and make note of any changes. * We sent a new medication called Augmentin to your pharmacy. Take Augmentin (875 mg) one tablet Twice a day for 12 days. * We sent a new medication called Macrobid to your pharmacy. Take Macrobid (100 mg) one tablet Twice a day for 12 days. Take your medications as instructed; do not skip a dose of your medicines. Make sure all of your doctors know every medicine you are taking (including catt-cjg-guffizu medicines, vitamins, and supplements). Call your primary care provider before taking any new medicines (including [id number]-naadjgu medicines, vitamins, and supplements), because some of these may interact with your current medications, or may make your symptoms worse. Tell your primary care provider if you cannot afford your medications. CONTACT YOUR PRIMARY CARE PROVIDER if you experience any of the following: Worsening of symptoms Difficulty following your treatment plan, or difficulty taking medications CALL 911 OR GO TO THE EMERGENCY DEPARTMENT if you experience any of the following: Sudden, severe abdominal pain or nausea/vomiting Severe chest pain, or chest pain that radiates (moves) to your jaw or arm Sudden, severe shortness of breath or difficulty breathing Thank you for allowing us to participate in your care. Pending Studies at Discharge: No Stand-Alone Forms: [facility], Smoking Cessation Medications and DC Order Prescriptions: New amoxicillin-pot clavulanate [Augmentin] 875-125 mg tablet 1 tab PO BID 12 Days Qty: 24 RF: 0 nitrofurantoin macrocrystal 100 mg capsule 100 mg PO BID 12 Days Qty: 24 RF: 0 Continued Gemtesa 75 mg Tablet 75 mg PO DAILY RF: 0 Discontinued doxycycline hyclate 100 mg tablet 100 mg PO BID 7 Days Qty: 14 RF: 0 Discharge Orders: Discharge Order (Routine); Ordered 04/25/21 Ordered By: Kayla Goff Admission Data Admit Date/Time: 04/23/21 02:44 Attending Provider: Nestor Mcnamara Admit Provider: Magnus Medina Primary Care Provider: Ricardo Sarkar Other Providers: Magnus Medina ; Pipe Drew Other Interventions: Discharge Summary Assessment (RN) Last Done: 04/25/21 10:37 Supervising Attestation I personally examined the patient and verified all azul points of history and exam, discussed case, and agree with decision making with B Andrade MS4 Feels good, feels up to going home. Discussed ongoing treatment plan. Vitals noted, in general he is awake and alert pleasant no distress. HEENT no rmocephalic atraumatic mucous membranes moist. Breathing unlabored no accessory muscle use good effort. Skin shows no rashes no pallor or icterus. Neuro without focal neuro deficits. Sepsis related to catheter associated UTIESBL, was sensitive to Zosyn, is sensitive to Augmentinwe'll send home on thisbut of note based on sensitivity patterns, it seems that it is basically resistant to any beta-lactam that does not have a beta-lactamase inhibitor as well, given the severity of his infection, the unique situation where the Lala was not able to be changed, and the ESBL profilewe will also utilize nitrofurantoin to try to overcome any potential for midstream/ongoing development of resistance. Otherwise as above
[2021-04-25 11:58] VITALS: BP 129/73; PULSE 69; TEMP 98.2
--- NOTE | 2021-04-25 19:05 | Billing Data ---
Date of Service April 25, 2021 Coding Level of Care Code D/C DAY MANAGEMENT <30 MINS
== END 2021-04-25 12:44 | disposition home or self-care (01) | DRG 698 ==
LOC: ED 18:47 → SUATTDRO 04-23 02:44 → 2S 04-23 02:44 → 2W 04-23 03:46